=== PATIENT | male | born 1945 | race Caucasian/White ===

== ENCOUNTER 2016-11-03 18:52 | Inpatient (IN) ==
[2016-11-03] MEDS: Ipratropium 1 PUFF INHALER IH PRN (23:56)
[2016-11-04 08:15] LABS: Basophils % 0.1 %; Hematocrit 26.5 % (37.5-50.1); Hemoglobin 9.3 g/dL (12.9-16.9); Immature Granulocytes % 0.9 % (0-4); Lymphocytes # 0.1 K/mcL (0.6-4.6); Lymphocytes % 0.9 %; Mean Corpuscular HGB Conc 35.1 g/dL (31.6-35.5); Mean Corpuscular Hemoglobin 32.1 pg (28.0-33.3); Mean Corpuscular Volume 91.4 fL (83.0-100.0); Mean Platelet Volume 11.7 fL (9.4-12.4); Monocytes # 0.4 K/mcL (0.0-1.3); Monocytes % 2.7 %; Neutrophils # 12.9 K/mcL (1.6-8.9); Red Cell Distribution Width 16.4 % (11.5-14.5); Segmented Neutrophils % 95.4 %
[2016-11-04 08:25] LABS: Platelet Count 40 K/mcL (140-400)
[2016-11-04] MEDS: Bumetanide 1 MG TABLET PO SCH ×2 (08:28→23:04)
[2016-11-04] MEDS: Cyanocobalamin (B-12) 1,000 MCG TABLET PO SCH (08:28)
[2016-11-04] MEDS: PredniSONE 5 MG TABLET PO SCH (08:28)
[2016-11-04] MEDS ORDERED: XYZAL 5MG PO SCH (09:00)
[2016-11-04] MEDS ORDERED: Loratadine 10 MG TABLET PO SCH (09:00)
[2016-11-04] MEDS ORDERED: Aspirin 81 MG TAB.CHEW PO SCH (09:00)
[2016-11-04] MEDS ORDERED: FOSAMAX 35 MG PO SCH (09:00)
[2016-11-04] MEDS ORDERED: Diltiazem SR (12hr) 90 MG CAPSULE PO SCH (09:00)
[2016-11-04] MEDS ORDERED: CINNAMON BARK PO SCH (09:00)
[2016-11-04 09:07] LABS: BUN/Creatinine Ratio 65 (6-26); Blood Urea Nitrogen 83 mg/dL (8-26); Calcium 7.3 mg/dL (8.6-10.8); Carbon Dioxide 22 mEq/L (19-29); Chloride 108 mEq/L (98-109); Glucose 146 mg/dL (70-99); Osmolality,Calculated 318 (280-300); Sodium 140 mEq/L (136-145); eGFR For African Americans > 60 (> 60); eGFR For Non-African Americans 55 (> 60)
[2016-11-04] MEDS ORDERED: Albuterol 2.5 MG/3 ML NEBULIZER ONE (09:29)
[2016-11-04] MEDS: Ipratropium 1 PUFF INHALER IH PRN ×2 (09:36→21:16)
[2016-11-04] MEDS: Budesonide/Formoterol 160/4.5 MDI IH SCH ×2 (09:37→21:15)
[2016-11-04 09:57] LABS: Platelet Estimate Decreased (Normal)
--- NOTE | 2016-11-04 14:51 | Internal Med History&Physical ---
Date of Encounter: 11/04/16 Time of Encounter: 14:15 Assessment and Plan (1) CHF (congestive heart failure) Current visit: Yes Status: Acute Will increase Bumex. We will start isosorbide and Lanoxin. Continue Lopressor. Qualifiers: Congestive heart failure type: systolic Congestive heart failure chronicity : chronic Qualified Code(s): I50.22 - Chronic systolic (congestive) heart failure (2) Hyperuricemia Current visit: Yes Status: Acute We will start allopurinol. (3) COPD with acute exacerbation Current visit: No Status: Acute Continue Symbicort. We will start Spiriva and continue prn albuterol nebs. (4) CKD (chronic kidney disease), stage III Current visit: No Status: Chronic We will monitor renal indices. (5) Anemia Current visit: No Status: Acute We will order anemia testing in a.m. Qualifiers: Anemia type: unspecified type Qualified Code(s): D64.9 - Anemia, unspecified (6) Atrial fibrillation Current visit: Yes Status: Chronic He is now only on aspirin and Plavix for CVA prophylaxis. Eliquis was discontinued due to bleeding esophagitis Qualifiers: Atrial fibrillation type: chronic Qualified Code(s): I48.2 - Chronic atrial fibrillation Internal Medicine - H&P: HPI Chief complaint: Dyspnea Admitted From: Hospital to Hospital Transfer Plans for Post Hospital Care: Home History of present illness: Mr. Lucia is a 71 year old male who was hospitalized at [facility] October 14-November 03 after presenting with dyspnea. He had a bronchoscopy done in [facility] emergency room and was intubated and on the ventilator overnight. He was able to be weaned from the ventilator and was treated for multiple medical problems over the 3 week stay. He improved but it was felt would benefit from swing bed admission and ongoing therapy prior to returning to independent living. Past Med Surg Social Fam HX - Past Medical History Medical history: atrial fibrillation, CHF, COPD, coronary artery disease, GERD, GI bleed, hyperlipidemia, hypertension, myocardial infarction, osteoporosis, valvular heart disease Psychiatric history: anxiety - Past Surgical History Surgical History: angioplasty/stent, appendectomy, carotid endarterectomy, heart valve replacement - Social History Smoking Status: Former smoker Packs per day: 2 1/2 packs Smokeless Tobacco Status: No Alcohol use: heavy, recent Drug use: none - Family History Mother Adopted: [place]: Esthela Alba Age: 93 Family Member Ethnicity: Non- Living Status: Age at : 93 Cause of : CA Hx Family Cardiac Disorders: No Hx Family Respiratory Disorders: No Hx Family Cancer: Yes Hx Family GI Disorders: No Hx Family Genitourinary Disorders: No Hx Family Endocrine Disorder: No Hx Family Musculoskeletal Disorders: No Hx Family Neuromuscular Disorders: No Hx Family Neurologic Disorders: No Hx Family HEENT Disorders: No Hx Family Autoimmune Disorders: No Hx Family Reproductive Disorders: No Hx Family Psychosocial Disorders: No Hx Family Medical Disorders: No Internal Medicine - H&P: Meds Albuterol Sulfate [Proair Respiclick] 2 puff IH Q4H PRN 08/29/15 [History] Alendronate Sodium [Fosamax] 35 mg PO QWEEK 08/29/15 [History] Aspirin [Adult Low Dose Aspirin EC] 81 mg PO DAILY 08/29/15 [History] Atorvastatin [Lipitor] 40 mg PO HS 08/29/15 [History] Bumetanide [Bumex] 1 mg PO BID 08/29/15 [History] Cinnamon Bark [Cinnamon] 1,000 mg PO DAILY 08/29/15 [History] Clopidogrel [Plavix] 75 mg PO DAILY 08/29/15 [History] Fluticasone/Salmeterol [Advair 500-50 Diskus] 1 each IH BID 08/29/15 [History] Garlic 1,000 mg PO BID 08/29/15 [History] Ipratropium [ATROVENT Inhaler] 2 puff IH Q6HR PRN 08/29/15 [History] Loratadine [Claritin] 10 mg PO DAILY 08/29/15 [History] Metoprolol [Lopressor] 50 mg PO BID 08/29/15 [History] Omeprazole [PriLOSEC] 20 mg PO DAILY 08/29/15 [History] Roflumilast [Daliresp] 500 mcg PO DAILY 08/29/15 [History] [place] Oil/C[place]azon-3 Fatty Acids [Fish Oil 500 mg Softgel] 1 each PO BID 08/29/15 [History] Vitamin B Complex [B Complex] 1 each PO DAILY 08/29/15 [History] Vitamin E (Dl,Tocopheryl Acet) [Vitamin E] 400 unit PO DAILY 08/29/15 [History] Levocetirizine Dihydrochloride [Xyzal] 5 mg PO DAILY 10/14/16 [History] PredniSONE 5 mg PO DAILY 10/14/16 [History] Diazepam [Valium] 2 mg PO HS #7 tablet 11/03/16 [Rx] Diltiazem CD (24hr) [Cardizem CD] 180 mg PO BID #60 cap.er.24h 11/03/16 [Rx] Allergies diazoxide Adverse Reaction (Verified 03/10/15 11:39) Rash furosemide [From Lasix] Adverse Reaction (Verified 03/10/15 11:39) Rash montelukast Adverse Reaction (Verified 03/10/15 11:39) See Comments Pneumococcal Vaccine Adverse Reaction (Verified 03/10/15 11:39) Rash All Systems PM: A 10-system review of systems was performed and is negative for pertinent findings except as documented above in the HPI. Review of systems: Gen.: His weight has increased from 78.8 kg on 09/06/2015 to 82.355 kg on swing bed admission. Cardiovascular: He has a history of hypertension and claims he had CO in the past. He had bioprosthetic AVR 2009. He did not undergo CABG. He has had 2 coronary stents placed. He has been diagnosed with heart failure with echocardiogram done during his recent [facility] stay showing LVEF of 40-45% with suspected LV diastolic dysfunction. There was significant LAE at 4.7 cm. There was increased thickness of interventricular septum and posterior wall 1.5 cm each. There was moderate aortic insufficiency. He has atrial fibrillation and has undergone maze procedure in the past. He was seen by cardiology during his recent [facility] stay and it was recommended he take Eliquis and Plavix. Denies DVT or pulmonary embolus. He had left carotid endarterectomy 2012. He has known moderate right ICA stenosis. Respiratory: He smoked from age [age] up to 3 packs per day. He has very severe COPD states he does not use home oxygen. He states he had negative RUPINDER workup in the past GI: He had upper GI bleed during [facility] stay an EGD showed esophagitis. He denies disorders of his liver gallbladder or exocrine pancreas : He denies disorders of his kidneys bladder or prostate. He denies hematuria dysuria or kidney stones. Review of available records show likely chronic kidney disease stage 2-3 present. Neurologic: He denies large distribution strokes or seizures. Endocrine: He has hyperlipidemia but denies diabetes or thyroid disease Hematology/oncology: He has anemia but denies internal malignancies other blood disorders Psychiatric: He denies anxiety depression or other mental health issues Musk skeletal: He has DJD but no documented gout other bone joint or muscle disorders. He was unaware he had hyperuricemia during his recent [facility] stay. - Constitutional Vitals: Temp Pulse Resp BP Pulse Ox 97.7 F 52 17 152/96 98 11/04/16 07:51 11/04/16 07:51 11/04/16 09:38 11/04/16 07:51 11/04/16 09:38 Exam: General: He is a well-developed well-nourished male who appears mildly dyspneic at rest HEENT: Head is atraumatic and normocephalic. Eyes: EOMI. There is no scleral icterus. Mouth: Mucosa is moist. Neck: Supple and nontender. There is no thyromegaly or adenopathy noted. Heart: Irregularly irregular. No murmurs or gallops were heard Lungs: He has diminished breath sounds diffusely. No wheezes or crackles are heard. He is wearing oxygen by nasal cannula. Abdomen: Soft and nontender. He has a well-healed longitudinal midline scar and a left oblique abdominal scar. No masses or guarding are noted. He has significant ecchymosis of the lower abdominal wall. Extremities: He has significant edema of the dorsum of the hands and lower arms bilaterally. He has 2-3+ edema of the legs and dorsum of the feet. His feet are wrapped with gauze and I did not unwrap these. His minimal DJD changes of his hands. Neurologic: Mental status: He is talkative and a good historian. Cranial nerves : Smile is symmetric. Forehead wrinkles bilaterally. Tongue protrudes midline. EOMI. Motor: There is no pronator drift. Cerebellar: Finger to nose is intact bilaterally. Skin: Warm and dry. He has chronic ecchymotic changes in his skin which appears thin and fragile. Internal Med - H&P Results - Labs CBC & Chem 7: 11/04/16 07:50 11/04/16 07:50 Labs: Short CBC 11/04/16 Range/Units 07:50 WBC 13.5 H (4.3-11.1) K/mcL Hgb 9.3 L (12.9-16.9) g/dL Hct 26.5 L (37.5-50.1) % Plt Count 40 L (140-400) K/mcL Neutrophils # 12.9 H (1.6-8.9) K/mcL BMP 11/04/16 07:50 Sodium 140 Potassium 4.0 Chloride 108 Carbon Dioxide 22 BUN 83 H Creatinine 1.28 H Glucose 146 H Calcium 7.3 L - VTE Documentation of Mechanical Device: Intermittent pneumatic compression device
[2016-11-04] MEDS ORDERED: *HR* Digoxin 0.25 MG TABLET PO ONE (15:30)
[2016-11-04] MEDS: Albuterol 2.5 MG/3 ML NEBULIZER IH PRN ×2 (15:34→19:34)
[2016-11-04] MEDS: Isosorbide MONOnitrate (24 HR) 30 MG TAB.ER.24H PO SCH (15:56)
[2016-11-05] MEDS: Albuterol 2.5 MG/3 ML NEBULIZER IH PRN ×5 (01:22→21:45)
[2016-11-05] MEDS: Ipratropium 1 PUFF INHALER IH PRN (03:11)
[2016-11-05 05:47] LABS: Basophils % 0.1 %; Eosinophils % 0.1 %; Hematocrit 26.8 % (37.5-50.1); Hemoglobin 8.9 g/dL (12.9-16.9); Immature Granulocytes % 0.8 % (0-4); Lymphocytes # 0.2 K/mcL (0.6-4.6); Lymphocytes % 2.5 %; Mean Corpuscular HGB Conc 33.2 g/dL (31.6-35.5); Mean Corpuscular Hemoglobin 31.1 pg (28.0-33.3); Mean Corpuscular Volume 93.7 fL (83.0-100.0); Mean Platelet Volume 12.1 fL (9.4-12.4); Monocytes # 0.2 K/mcL (0.0-1.3); Monocytes % 2.4 %; Neutrophils # 8.2 K/mcL (1.6-8.9); Red Blood Count 2.86 M/mcL (4.19-5.50); Red Cell Distribution Width 16.7 % (11.5-14.5); Segmented Neutrophils % 94.1 %
[2016-11-05 05:54] LABS: Platelet Count 38 K/mcL (140-400)
[2016-11-05 06:04] LABS: Calcium 7.5 mg/dL (8.6-10.8); Potassium 3.6 mEq/L (3.5-4.5)
[2016-11-05] MEDS: *HR* Digoxin 0.125 MG TABLET PO SCH (10:23)
[2016-11-05] MEDS: Diltiazem CD (24hr) 180 MG CAPSULE PO SCH (10:23)
[2016-11-05] MEDS: Isosorbide MONOnitrate (24 HR) 30 MG TAB.ER.24H PO SCH (10:23)
[2016-11-05] MEDS: Bumetanide 1 MG TABLET PO SCH ×2 (10:23→18:39)
[2016-11-05] MEDS: PredniSONE 5 MG TABLET PO SCH (10:24)
[2016-11-05] MEDS: Cyanocobalamin (B-12) 1,000 MCG TABLET PO SCH (10:24)
[2016-11-05] MEDS: Budesonide/Formoterol 160/4.5 MDI IH SCH ×2 (10:41→21:44)
[2016-11-05 14:15] LABS: Folate 12.2 ng/mL (7.0-31.4)
--- NOTE | 2016-11-05 16:19 | Internal Med Progress Note ---
Date of Encounter: 11/05/16 Time of Encounter: 16:10 - Assessment and plan (1) CHF (congestive heart failure) Current Visit: Yes Status: Acute Assessment and plan: November 05. Continue Bumex, Lopressor, isosorbide, and Lanoxin. Will add Cozaar since blood pressure is elevated also. Qualifiers: Congestive heart failure type: systolic Congestive heart failure chronicity : chronic Qualified Code(s): I50.22 - Chronic systolic (congestive) heart failure (2) Hyperuricemia Current Visit: Yes Status: Acute Assessment and plan: November 05. Continue allopurinol (3) COPD with acute exacerbation Current Visit: No Status: Acute Assessment and plan: November 05. Continue Symbicort, Spiriva, and prn albuterol nebs (4) CKD (chronic kidney disease), stage III Current Visit: No Status: Chronic Assessment and plan: November 05. Continue to monitor renal indices. (5) Anemia Current Visit: No Status: Acute Assessment and plan: November 05. Anemia testing showed iron 38, transferrin saturation 20%, ferritin 655, B12 1963, and folate 12.2. We will discontinue supplemental B12. Qualifiers: Anemia type: unspecified type Qualified Code(s): D64.9 - Anemia, unspecified (6) Atrial fibrillation Current Visit: Yes Status: Chronic Assessment and plan: November 05. Aspirin was discontinued because of anemia and recent upper GI bleed at [facility]. We will continue Plavix for now with Lopressor for rate control Qualifiers: Atrial fibrillation type: chronic Qualified Code(s): I48.2 - Chronic atrial fibrillation - Subjective Interval history: November 05. He has no new complaints and states he feels better overall. - Constitutional Vitals: Temp Pulse Resp BP Pulse Ox 98.3 F 111 22 161/68 94 11/05/16 10:17 11/05/16 10:11/05/16 13:54 11/05/16 10:11/05/16 13:54 Exam: He has resting comfortably in bed. He is less dyspneic with talking. His edema does not appear significantly changed. I reviewed his medications and lab results. Internal Medicine: Result - Labs CBC & Chem 7: 11/05/16 04:49 11/05/16 04:49 Labs: Short CBC 11/05/16 Range/Units 04:49 WBC 8.7 (4.3-11.1) K/mcL Hgb 8.9 L (12.9-16.9) g/dL Hct 26.8 L (37.5-50.1) % Plt Count 38 L (140-400) K/mcL Neutrophils # 8.2 (1.6-8.9) K/mcL BMP 11/05/16 04:49 Sodium 142 Potassium 3.6 Chloride 107 Carbon Dioxide 24 BUN 88 H Creatinine 1.42 H Glucose 108 H Calcium 7.5 L - VTE Documentation of Mechanical Device: Intermittent pneumatic compression device Consult Discharge Plan - Plan Referrals: Karri Mroales MD [Primary Care Provider] - 1 week
[2016-11-05] MEDS ORDERED: Isosorbide MONOnitrate (24 HR) 30 MG TAB.ER.24H PO ONE (16:45)
[2016-11-05] MEDS ORDERED: Silver Sulfadiazine 50 GM TUBE TP ONE (23:25)
[2016-11-06] MEDS: Albuterol 2.5 MG/3 ML NEBULIZER IH PRN ×3 (03:49→21:42)
[2016-11-06] MEDS: Bumetanide 1 MG TABLET PO SCH ×2 (07:58→17:37)
[2016-11-06] MEDS ORDERED: Silvasorb 44.4 ML TUBE TP SCH (09:00)
--- NOTE | 2016-11-06 09:08 | Internal Med Progress Note ---
Date of Encounter: 11/06/16 Time of Encounter: 08:55 - Assessment and plan (1) CHF (congestive heart failure) Current Visit: Yes Status: Acute Assessment and plan: November 05. Continue Bumex, Lopressor, isosorbide, and Lanoxin. Will add Cozaar since blood pressure is elevated also. November 06. We will hold Cozaar today since blood pressure has decreased and is now borderline low. Continue Bumex, Lopressor, isosorbide, and Lanoxin. Check labs in a.m. Qualifiers: Congestive heart failure type: systolic Congestive heart failure chronicity : chronic Qualified Code(s): I50.22 - Chronic systolic (congestive) heart failure (2) Hyperuricemia Current Visit: Yes Status: Acute Assessment and plan: November 05. Continue allopurinol (3) COPD with acute exacerbation Current Visit: No Status: Acute Assessment and plan: November 05. Continue Symbicort, Spiriva, and prn albuterol nebs (4) CKD (chronic kidney disease), stage III Current Visit: No Status: Chronic Assessment and plan: November 05. Continue to monitor renal indices. (5) Anemia Current Visit: No Status: Acute Assessment and plan: November 05. Anemia testing showed iron 38, transferrin saturation 20%, ferritin 655, B12 1963, and folate 12.2. We will discontinue supplemental B12. Qualifiers: Anemia type: unspecified type Qualified Code(s): D64.9 - Anemia, unspecified (6) Atrial fibrillation Current Visit: Yes Status: Chronic Assessment and plan: November 05. Aspirin was discontinued because of anemia and recent upper GI bleed at [facility]. We will continue Plavix for now with Lopressor for rate control November 06. Continue Lopressor for rate control. Recheck labs in a.m. Qualifiers: Atrial fibrillation type: chronic Qualified Code(s): I48.2 - Chronic atrial fibrillation - Subjective Interval history: November 05. He has no new complaints and states he feels better overall. November 06. He states his dyspnea has improved. He had a brief episode of chest pain earlier today. - Constitutional Vitals: Temp Pulse Resp BP Pulse Ox 97.5 F L 100 16 108/70 95 11/06/16 07:55 11/06/16 07:55 11/06/16 07:55 11/06/16 07:55 11/06/16 07:55 Exam: He is sitting in bed and appears less dyspneic than yesterday. His left hand and arm edema have lessened. The right arm still shows erythematous induration in the distal upper arm posteriorly. There is still edema of the right forearm and hand as yesterday. His leg edema has slightly improved. Lungs show scattered rhonchi. Reviewed his medications and lab results Internal Medicine: Result - Labs CBC & Chem 7: 11/05/16 04:49 11/05/16 04:49 - VTE Documentation of Mechanical Device: Intermittent pneumatic compression device Consult Discharge Plan - Plan Referrals: Karri Morales MD [Primary Care Provider] - 1 week
[2016-11-06] MEDS: Diltiazem CD (24hr) 180 MG CAPSULE PO SCH (10:55)
[2016-11-06] MEDS: PredniSONE 5 MG TABLET PO SCH (10:56)
[2016-11-06] MEDS: Isosorbide MONOnitrate (24 HR) 60 MG TAB.ER.24H PO SCH (10:56)
[2016-11-06] MEDS: *HR* Digoxin 0.125 MG TABLET PO SCH (11:00)
[2016-11-06] MEDS: Budesonide/Formoterol 160/4.5 MDI IH SCH ×2 (11:33→21:42)
[2016-11-06] MEDS: Tiotropium 18 MCG inhalation IH SCH (11:43)
[2016-11-06] MEDS: Nystatin SUSP 5 ML UD.LIQ PO SCH ×2 (17:37→22:08)
[2016-11-06] MEDS: Silvasorb 44.4 ML TUBE TP SCH (22:41)
[2016-11-07 06:20] LABS: Eosinophils # 0.1 K/mcL (0.0-0.6); Eosinophils % 2.1 %; Immature Granulocytes % 1.2 % (0-4); Lymphocytes # 0.2 K/mcL (0.6-4.6); Lymphocytes % 5.6 %; Mean Corpuscular HGB Conc 33.3 g/dL (31.6-35.5); Mean Corpuscular Hemoglobin 31.7 pg (28.0-33.3); Mean Corpuscular Volume 95.2 fL (83.0-100.0); Mean Platelet Volume 12.5 fL (9.4-12.4); Monocytes # 0.2 K/mcL (0.0-1.3); Monocytes % 4.7 %; Neutrophils # 3.7 K/mcL (1.6-8.9); Red Blood Count 2.52 M/mcL (4.19-5.50); Red Cell Distribution Width 16.9 % (11.5-14.5); Segmented Neutrophils % 86.4 %
[2016-11-07 06:34] LABS: Alanine Aminotransferase 47 Units/L (0-55); Albumin/Globulin Ratio 0.8 (1.1-2.2); Alkaline Phosphatase 58 Units/L (38-126); Aspartate Amino Transferase 58 Units/L (5-34); BUN/Creatinine Ratio 70 (6-26); Bilirubin,Total 0.6 mg/dL (0.2-1.2); Blood Urea Nitrogen 79 mg/dL (8-26); Calcium 7.5 mg/dL (8.6-10.8); Carbon Dioxide 22 mEq/L (19-29); Chloride 107 mEq/L (98-109); Globulin 2.3 g/dL (2.4-3.5); Glucose 88 mg/dL (70-99); Magnesium 1.4 mg/dL (1.6-2.6); Osmolality,Calculated 317 (280-300); Potassium 3.7 mEq/L (3.5-4.5); Sodium 142 mEq/L (136-145); Total Protein 4.2 g/dL (6.0-8.3); eGFR For African Americans > 60 (> 60); eGFR For Non-African Americans > 60 (> 60)
[2016-11-07 06:35] LABS: Albumin 1.9 g/dL (3.5-5.0)
[2016-11-07 06:39] LABS: Platelet Count 32 K/mcL (140-400)
[2016-11-07 06:44] LABS: Digoxin < 0.3 ng/mL (0.8-2.0)
[2016-11-07 08:38] LABS: Platelet Estimate Decreased (Normal)
[2016-11-07] MEDS: Diltiazem CD (24hr) 180 MG CAPSULE PO SCH (09:03)
[2016-11-07] MEDS: Bumetanide 1 MG TABLET PO SCH ×2 (09:06→16:03)
[2016-11-07] MEDS: PredniSONE 5 MG TABLET PO SCH (09:07)
[2016-11-07] MEDS: *HR* Digoxin 0.125 MG TABLET PO SCH (09:07)
[2016-11-07] MEDS: Isosorbide MONOnitrate (24 HR) 60 MG TAB.ER.24H PO SCH (09:08)
[2016-11-07] MEDS: Nystatin SUSP 5 ML UD.LIQ PO SCH ×4 (09:09→21:44)
[2016-11-07] MEDS: Tiotropium 18 MCG inhalation IH SCH (11:50)
[2016-11-07] MEDS: Budesonide/Formoterol 160/4.5 MDI IH SCH ×2 (11:50→22:15)
--- NOTE | 2016-11-07 14:51 | Internal Med Progress Note ---
Date of Encounter: 11/07/16 Time of Encounter: 14:40 - Assessment and plan (1) CHF (congestive heart failure) Current Visit: Yes Status: Acute Assessment and plan: November 05. Continue Bumex, Lopressor, isosorbide, and Lanoxin. Will add Cozaar since blood pressure is elevated also. November 06. We will hold Cozaar today since blood pressure has decreased and is now borderline low. Continue Bumex, Lopressor, isosorbide, and Lanoxin. Check labs in a.m. November 07. Will increase Lanoxin and isosorbide. Continue Lopressor and Bumex at present doses. Qualifiers: Congestive heart failure type: systolic Congestive heart failure chronicity : chronic Qualified Code(s): I50.22 - Chronic systolic (congestive) heart failure (2) Hyperuricemia Current Visit: Yes Status: Acute Assessment and plan: November 05. Continue allopurinol (3) COPD with acute exacerbation Current Visit: No Status: Acute Assessment and plan: November 05. Continue Symbicort, Spiriva, and prn albuterol nebs (4) CKD (chronic kidney disease), stage III Current Visit: No Status: Chronic Assessment and plan: November 05. Continue to monitor renal indices. November 07. Creatinine has decreased to 1.13 with estimated GFR greater than 60. Continue present regimen. (5) Anemia Current Visit: No Status: Acute Assessment and plan: November 05. Anemia testing showed iron 38, transferrin saturation 20%, ferritin 655, B12 1963, and folate 12.2. We will discontinue supplemental B12. November 07. Hemoglobin continues to decrease. We will discontinue Plavix. Qualifiers: Anemia type: unspecified type Qualified Code(s): D64.9 - Anemia, unspecified (6) Atrial fibrillation Current Visit: Yes Status: Chronic Assessment and plan: November 05. Aspirin was discontinued because of anemia and recent upper GI bleed at [facility]. We will continue Plavix for now with Lopressor for rate control November 06. Continue Lopressor for rate control. Recheck labs in a.m. Qualifiers: Atrial fibrillation type: chronic Qualified Code(s): I48.2 - Chronic atrial fibrillation (7) Hypomagnesemia Current Visit: Yes Status: Acute Assessment and plan: November 07. Magnesium level low at 1.4. Will start magnesium oxide - Subjective Interval history: November 05. He has no new complaints and states he feels better overall. November 06. He states his dyspnea has improved. He had a brief episode of chest pain earlier today. November 07. He has no new complaints and feels better. - Constitutional Vitals: Temp Pulse Resp BP Pulse Ox 98.5 F 101 16 126/57 92 11/07/16 07:32 11/07/16 09:00 11/07/16 07:32 11/07/16 09:00 11/07/16 07:32 Exam: He is resting comfortably in bed. He does not get dyspnea on talking. The edema in his left arm has essentially resolved. His leg edema has lessened. The right arm edema is minimally changed. I reviewed his medications and lab results. Internal Medicine: Result - Labs CBC & Chem 7: 11/07/16 04:53 11/07/16 04:53 Labs: Short CBC 11/07/16 Range/Units 04:53 WBC 4.3 D (4.3-11.1) K/mcL Hgb 8.0 L (12.9-16.9) g/dL Hct 24.0 L (37.5-50.1) % Plt Count 32 L (140-400) K/mcL Neutrophils # 3.7 (1.6-8.9) K/mcL BMP 11/07/16 04:53 Sodium 142 Potassium 3.7 Chloride 107 Carbon Dioxide 22 BUN 79 H Creatinine 1.13 Glucose 88 Calcium 7.5 L Liver Function 11/07/16 Range/Units 04:53 Total Bilirubin 0.6 (0.2-1.2) mg/dL AST 58 H (5-34) Units/L ALT 47 (0-55) Units/L Alkaline Phosphatase 58 (38-126) Units/L Albumin 1.9 L (3.5-5.0) g/dL - VTE Documentation of Mechanical Device: Intermittent pneumatic compression device Consult Discharge Plan - Plan Referrals: Karri Morales MD [Primary Care Provider] - 1 week
[2016-11-07] MEDS ORDERED: *HR* Digoxin 0.125 MG TABLET PO SCH (14:56)
[2016-11-07] MEDS: Silvasorb 44.4 ML TUBE TP SCH (16:04)
[2016-11-07] MEDS: Magnesium Oxide 400 MG TABLET PO SCH (21:43)
[2016-11-07] MEDS: Albuterol 2.5 MG/3 ML NEBULIZER IH PRN (22:15)
[2016-11-08] MEDS: Albuterol 2.5 MG/3 ML NEBULIZER IH PRN ×5 (02:19→21:39)
[2016-11-08] MEDS: Budesonide/Formoterol 160/4.5 MDI IH SCH ×2 (08:59→21:39)
[2016-11-08] MEDS: Tiotropium 18 MCG inhalation IH SCH (08:59)
[2016-11-08] MEDS: PredniSONE 5 MG TABLET PO SCH (10:05)
[2016-11-08] MEDS: Bumetanide 1 MG TABLET PO SCH ×2 (10:05→17:06)
[2016-11-08] MEDS: Magnesium Oxide 400 MG TABLET PO SCH ×2 (10:05→20:37)
[2016-11-08] MEDS: Isosorbide MONOnitrate (24 HR) 60 MG TAB.ER.24H PO SCH (10:06)
[2016-11-08] MEDS: Diltiazem CD (24hr) 180 MG CAPSULE PO SCH (10:06)
[2016-11-08] MEDS: Nystatin SUSP 5 ML UD.LIQ PO SCH ×4 (10:07→20:38)
[2016-11-08] MEDS: Silvasorb 44.4 ML TUBE TP SCH (10:15)
[2016-11-09] MEDS: Albuterol 2.5 MG/3 ML NEBULIZER IH PRN ×4 (03:46→21:58)
[2016-11-09 05:44] LABS: Eosinophils # 0.1 K/mcL (0.0-0.6); Hematocrit 20.5 % (37.5-50.1); Hemoglobin 6.7 g/dL (12.9-16.9); Lymphocytes # 0.3 K/mcL (0.6-4.6); Mean Corpuscular HGB Conc 32.7 g/dL (31.6-35.5); Mean Corpuscular Hemoglobin 31.5 pg (28.0-33.3); Mean Corpuscular Volume 96.2 fL (83.0-100.0); Monocytes # 0.2 K/mcL (0.0-1.3); Red Blood Count 2.13 M/mcL (4.19-5.50); Red Cell Distribution Width 17.2 % (11.5-14.5)
[2016-11-09 06:00] LABS: BUN/Creatinine Ratio 67 (6-26); Blood Urea Nitrogen 73 mg/dL (8-26); Calcium 7.6 mg/dL (8.6-10.8); Carbon Dioxide 25 mEq/L (19-29); Chloride 106 mEq/L (98-109); Glucose 88 mg/dL (70-99); Magnesium 1.2 mg/dL (1.6-2.6); Osmolality,Calculated 313 (280-300); Potassium 3.5 mEq/L (3.5-4.5); Sodium 141 mEq/L (136-145); eGFR For African Americans > 60 (> 60); eGFR For Non-African Americans > 60 (> 60)
[2016-11-09 08:32] LABS: Neutrophils # 2.2 K/mcL (1.6-8.9); Platelet Estimate Decreased (Normal)
[2016-11-09 08:33] LABS: Anisocytosis 1+ (Not Present); Ovalocytes 1+ (Not Present)
[2016-11-09] MEDS: PredniSONE 5 MG TABLET PO SCH (09:04)
[2016-11-09] MEDS: *HR* Digoxin 0.25 MG TABLET PO SCH (09:05)
[2016-11-09] MEDS: Bumetanide 1 MG TABLET PO SCH ×2 (09:06→17:04)
[2016-11-09] MEDS: Magnesium Oxide 400 MG TABLET PO SCH ×2 (09:06→19:44)
[2016-11-09] MEDS: Isosorbide MONOnitrate (24 HR) 60 MG TAB.ER.24H PO SCH (09:07)
[2016-11-09] MEDS: Diltiazem CD (24hr) 180 MG CAPSULE PO SCH (09:07)
[2016-11-09] MEDS: Nystatin SUSP 5 ML UD.LIQ PO SCH ×4 (09:09→19:44)
[2016-11-09] MEDS: Silver Sulfadiazine 50 GM TUBE TP SCH (09:16)
[2016-11-09] MEDS: Budesonide/Formoterol 160/4.5 MDI IH SCH ×2 (10:27→21:58)
[2016-11-09] MEDS: Tiotropium 18 MCG inhalation IH SCH (10:30)
[2016-11-09 15:57] LABS: Bilirubin,Urine Negative (Negative); Blood,Urine Small (Negative); Clarity,Urine Slightly Cloudy (Clear); Color,Urine Yellow (Yellow); Glucose,Urine (UA) Normal (Normal); Ketones,Urine Negative (Negative); Leukocyte Esterase,Urine Small (Negative); Nitrite,Urine Negative (Negative); Protein,Urine Negative (Neg-Trace); Urobilinogen,Urine Normal (Normal)
[2016-11-09 16:13] LABS: Granular Casts,Urine Moderate per lpf (None Seen); Renal Epithelial Cells,Urine Many per hpf (None-Few); Squamous Epithelial Cell,Urine Few per lpf (None-Few); Yeast,Urine Many per hpf (None Seen)
--- NOTE | 2016-11-09 16:21 | Internal Med Progress Note ---
Date of Encounter: 11/09/16 Time of Encounter: 14:00 - Assessment and plan (1) CHF (congestive heart failure) Current Visit: Yes Status: Acute Assessment and plan: November 05. Continue Bumex, Lopressor, isosorbide, and Lanoxin. Will add Cozaar since blood pressure is elevated also. November 06. We will hold Cozaar today since blood pressure has decreased and is now borderline low. Continue Bumex, Lopressor, isosorbide, and Lanoxin. Check labs in a.m. November 07. Will increase Lanoxin and isosorbide. Continue Lopressor and Bumex at present doses. November 09. Continue present dose Lanoxin, Imdur, Bumex, Cozaar and Lopressor. Bn peptide is not significantly changed. Qualifiers: Congestive heart failure type: systolic Congestive heart failure chronicity : chronic Qualified Code(s): I50.22 - Chronic systolic (congestive) heart failure (2) Hyperuricemia Current Visit: Yes Status: Acute Assessment and plan: November 05. Continue allopurinol November 09. We will recheck uric acid level in a.m. (3) COPD with acute exacerbation Current Visit: No Status: Acute Assessment and plan: November 05. Continue Symbicort, Spiriva, and prn albuterol nebs (4) CKD (chronic kidney disease), stage III Current Visit: No Status: Chronic Assessment and plan: November 05. Continue to monitor renal indices. November 07. Creatinine has decreased to 1.13 with estimated GFR greater than 60. Continue present regimen. November 09. Creatinine has decreased to 1.09. Continue present management (5) Anemia Current Visit: No Status: Acute Assessment and plan: November 05. Anemia testing showed iron 38, transferrin saturation 20%, ferritin 655, B12 1963, and folate 12.2. We will discontinue supplemental B12. November 07. Hemoglobin continues to decrease. We will discontinue Plavix. November 09. He has pancytopenia with significant bandemia. He had upper GI bleed with esophagitis on EGD 11/01/2016 during his recent [facility] stay. Will guaiac stool. Qualifiers: Anemia type: unspecified type Qualified Code(s): D64.9 - Anemia, unspecified (6) Atrial fibrillation Current Visit: Yes Status: Chronic Assessment and plan: November 05. Aspirin was discontinued because of anemia and recent upper GI bleed at [facility]. We will continue Plavix for now with Lopressor for rate control November 06. Continue Lopressor for rate control. Recheck labs in a.m. November 09. Continue Lopressor. Remain off OAC and antiplatelet agents because of worsening anemia. Qualifiers: Atrial fibrillation type: chronic Qualified Code(s): I48.2 - Chronic atrial fibrillation (7) Hypomagnesemia Current Visit: Yes Status: Acute Assessment and plan: November 07. Magnesium level low at 1.4. Will start magnesium oxide November 09. Magnesium level still low at 1.2. We will give dose of IV magnesium sulfate and continue oral magnesium oxide.. - Subjective Interval history: November 05. He has no new complaints and states he feels better overall. November 06. He states his dyspnea has improved. He had a brief episode of chest pain earlier today. November 07. He has no new complaints and feels better. November 09. He has no new complaints. - Constitutional Vitals: Temp Pulse Resp BP Pulse Ox 97.8 F 89 16 98/49 98 11/09/16 14:27 11/09/16 16:09 11/09/16 16:09 11/09/16 16:09 11/09/16 16:09 Exam: He is sitting in a chair at bedside. His legs show decreased edema. The left arm edema has essentially resolved. The right arm erythema and edema is not significantly changed. His lungs show a few scattered rhonchi. He is appropriate in conversation. I reviewed his medications and lab results. Internal Medicine: Result - Labs CBC & Chem 7: 11/09/16 05:15 11/09/16 05:15 Labs: Short CBC 11/09/16 Range/Units 05:15 WBC 2.7 L (4.3-11.1) K/mcL Hgb 6.7 L (12.9-16.9) g/dL Hct 20.5 L (37.5-50.1) % Plt Count 28 L* (140-400) K/mcL Neutrophils # 2.2 (1.6-8.9) K/mcL BMP 11/09/16 05:15 Sodium 141 Potassium 3.5 Chloride 106 Carbon Dioxide 25 BUN 73 H Creatinine 1.09 Glucose 88 Calcium 7.6 L Urine 11/09/16 Range/Units 15:40 Urine Color Yellow (Yellow) Urine Clarity Slightly Cloudy A (Clear) Urine pH 5.0 (5.0-8.0) pH Units Ur Specific [place] 1.010 (1.010-1.025) Urine Protein Negative (Neg-Trace) mg/dL Urine Glucose (UA) Normal (Normal) mg/dL - Impressions Impressions Chest CT 11/09/16 12:44 IMPRESSION: Diffuse soft tissue edema of the right upper extremity from the level of the mid upper arm to the hand suggesting cellulitis. No evidence of deep soft tissue infection. No discrete drainable fluid collection to suggest an abscess within the limits of this exam. No evidence of joint effusions. Incidentally noted medial subluxation of the long head biceps tendon from which can be seen with subscapularis tear. Exam is not tailored for the evaluation of the shoulder. Subtle sclerotic areas in the right anterolateral 4th, 5th and 6th ribs. Cortical irregularity and sclerosis of the right lateral 7th rib. Given the contiguous nature of these findings in adjacent ribs findings suggest healing subacute fractures. Differential would include metastatic osseous lesions given the appearance of the 7th rib. Bone scan may be helpful for further evaluation. Cardiomegaly with interstitial pulmonary edema and small bilateral pleural effusions suggesting CHF. D/ / 11/09/2016 15:20:07 Micah Fam MD / jared Interpreting Provider: Micah Fam MD Upper Extremity CT 11/09/16 12:44 IMPRESSION: Diffuse soft tissue edema of the right upper extremity from the level of the mid upper arm to the hand suggesting cellulitis. No evidence of deep soft tissue infection. No discrete drainable fluid collection to suggest an abscess within the limits of this exam. No evidence of joint effusions. Incidentally noted medial subluxation of the long head biceps tendon from which can be seen with subscapularis tear. Exam is not tailored for the evaluation of the shoulder. Subtle sclerotic areas in the right anterolateral 4th, 5th and 6th ribs. Cortical irregularity and sclerosis of the right lateral 7th rib. Given the contiguous nature of these findings in adjacent ribs findings suggest healing subacute fractures. Differential would include metastatic osseous lesions given the appearance of the 7th rib. Bone scan may be helpful for further evaluation. Cardiomegaly with interstitial pulmonary edema and small bilateral pleural effusions suggesting CHF. D/ / 11/09/2016 15:20:07 Micah Fam MD / [email or web address] Interpreting Provider: Micah Fam MD - VTE Documentation of Mechanical Device: Intermittent pneumatic compression device Consult Discharge Plan - Plan Referrals: Karri Morales MD [Primary Care Provider] - 1 week
[2016-11-09] MEDS ORDERED: Magnesium Sulfate 1 GM in D5% in Water 100 ML IVPB ONE (16:27)
[2016-11-09] MEDS: Vancomycin 1,250 MG in D5% in Water 250 ML IVPB SCH (18:00)
[2016-11-10 06:08] LABS: Eosinophils % 0.9 %; Hematocrit 18.2 % (37.5-50.1); Immature Granulocytes % 0.9 % (0-4); Lymphocytes # 0.3 K/mcL (0.6-4.6); Lymphocytes % 11.7 %; Mean Corpuscular Hemoglobin 31.3 pg (28.0-33.3); Mean Corpuscular Volume 94.8 fL (83.0-100.0); Mean Platelet Volume 11.4 fL (9.4-12.4); Monocytes # 0.1 K/mcL (0.0-1.3); Monocytes % 6.1 %; Neutrophils # 1.9 K/mcL (1.6-8.9); Red Blood Count 1.92 M/mcL (4.19-5.50); Red Cell Distribution Width 17.4 % (11.5-14.5); Segmented Neutrophils % 80.4 %
[2016-11-10 06:27] LABS: Alanine Aminotransferase 57 Units/L (0-55); Albumin/Globulin Ratio 0.5 (1.1-2.2); Alkaline Phosphatase 60 Units/L (38-126); Aspartate Amino Transferase 59 Units/L (5-34); BUN/Creatinine Ratio 66 (6-26); Bilirubin,Total 0.4 mg/dL (0.2-1.2); Blood Urea Nitrogen 77 mg/dL (8-26); Calcium 7.5 mg/dL (8.6-10.8); Carbon Dioxide 25 mEq/L (19-29); Chloride 105 mEq/L (98-109); Globulin 2.7 g/dL (2.4-3.5); Glucose 118 mg/dL (70-99); Magnesium 1.3 mg/dL (1.6-2.6); Osmolality,Calculated 312 (280-300); Potassium 3.5 mEq/L (3.5-4.5); Sodium 139 mEq/L (136-145); Total Protein 4.1 g/dL (6.0-8.3); Uric Acid 8.6 mg/dL (3.5-7.2); eGFR For African Americans > 60 (> 60); eGFR For Non-African Americans > 60 (> 60)
[2016-11-10 06:28] LABS: Albumin 1.4 g/dL (3.5-5.0); Platelet Count 27 K/mcL (140-400)
[2016-11-10 06:39] LABS: Platelet Estimate Decreased (Normal)
[2016-11-10] MEDS: *HR* Digoxin 0.25 MG TABLET PO SCH (08:06)
[2016-11-10] MEDS: Magnesium Oxide 400 MG TABLET PO SCH ×2 (08:06→20:15)
[2016-11-10] MEDS: Nystatin SUSP 5 ML UD.LIQ PO SCH ×4 (08:06→20:16)
[2016-11-10] MEDS: Bumetanide 1 MG TABLET PO SCH (08:06)
[2016-11-10] MEDS: Isosorbide MONOnitrate (24 HR) 60 MG TAB.ER.24H PO SCH ×2 (08:07→09:46)
[2016-11-10] MEDS: Diltiazem CD (24hr) 180 MG CAPSULE PO SCH (08:08)
[2016-11-10] MEDS ORDERED: Magnesium Sulfate 1 GM in D5% in Water 100 ML IVPB ONE (08:45)
--- NOTE | 2016-11-10 08:50 | Internal Med Progress Note ---
Date of Encounter: 11/10/16 Time of Encounter: 08:40 - Assessment and plan (1) CHF (congestive heart failure) Current Visit: Yes Status: Acute Assessment and plan: November 05. Continue Bumex, Lopressor, isosorbide, and Lanoxin. Will add Cozaar since blood pressure is elevated also. November 06. We will hold Cozaar today since blood pressure has decreased and is now borderline low. Continue Bumex, Lopressor, isosorbide, and Lanoxin. Check labs in a.m. November 07. Will increase Lanoxin and isosorbide. Continue Lopressor and Bumex at present doses. November 09. Continue present dose Lanoxin, Imdur, Bumex, Cozaar and Lopressor. Bn peptide is not significantly changed. November 10. We will give Bumex IV instead of by mouth. Continue other medications as at present. Qualifiers: Congestive heart failure type: systolic Congestive heart failure chronicity : chronic Qualified Code(s): I50.22 - Chronic systolic (congestive) heart failure (2) Hyperuricemia Current Visit: Yes Status: Acute Assessment and plan: November 05. Continue allopurinol November 09. We will recheck uric acid level in a.m. November 10. Uric acid level has improved to 8.6. We will increase allopurinol to 400 mg daily. (3) COPD with acute exacerbation Current Visit: No Status: Acute Assessment and plan: November 05. Continue Symbicort, Spiriva, and prn albuterol nebs (4) CKD (chronic kidney disease), stage III Current Visit: No Status: Chronic Assessment and plan: November 05. Continue to monitor renal indices. November 07. Creatinine has decreased to 1.13 with estimated GFR greater than 60. Continue present regimen. November 09. Creatinine has decreased to 1.09. Continue present management (5) Anemia Current Visit: No Status: Acute Assessment and plan: November 05. Anemia testing showed iron 38, transferrin saturation 20%, ferritin 655, B12 1963, and folate 12.2. We will discontinue supplemental B12. November 07. Hemoglobin continues to decrease. We will discontinue Plavix. November 09. He has pancytopenia with significant bandemia. He had upper GI bleed with esophagitis on EGD 11/01/2016 during his recent [facility] stay. Will guaiac stool. November 10. Pancytopenia persists. Bandemia has resolved with segs 80.4%. We will give 2 units packed red blood cells today and recheck labs in a.m. Stool was Hemoccult positive. Qualifiers: Anemia type: unspecified type Qualified Code(s): D64.9 - Anemia, unspecified (6) Atrial fibrillation Current Visit: Yes Status: Chronic Assessment and plan: November 05. Aspirin was discontinued because of anemia and recent upper GI bleed at [facility]. We will continue Plavix for now with Lopressor for rate control November 06. Continue Lopressor for rate control. Recheck labs in a.m. November 09. Continue Lopressor. Remain off OAC and antiplatelet agents because of worsening anemia. Qualifiers: Atrial fibrillation type: chronic Qualified Code(s): I48.2 - Chronic atrial fibrillation (7) Hypomagnesemia Current Visit: Yes Status: Acute Assessment and plan: November 07. Magnesium level low at 1.4. Will start magnesium oxide November 09. Magnesium level still low at 1.2. We will give dose of IV magnesium sulfate and continue oral magnesium oxide.. November 10. Magnesium level minimally changed to 1.3. We will give 1 g magnesium sulfate IV and recheck labs in a.m. Continue oral magnesium oxide. - Subjective Interval history: November 05. He has no new complaints and states he feels better overall. November 06. He states his dyspnea has improved. He had a brief episode of chest pain earlier today. November 07. He has no new complaints and feels better. November 09. He has no new complaints. November 10. He has no new complaints. He denies pain but states he has slight dyspnea. - Constitutional Vitals: Temp Pulse Resp BP Pulse Ox 98.2 F 81 20 116/60 93 11/10/16 07:01 11/10/16 07:01 11/10/16 07:01 11/10/16 08:11 11/10/16 07:01 Exam: He is resting in bed. He has occasional cough with secretions heard. His extremity edema is slightly less in his legs. He has slight left arm edema. The right arm edema shows minimal change. Reviewed his medications and lab results. Internal Medicine: Result - Labs CBC & Chem 7: 11/10/16 05:10 11/10/16 05:10 Labs: Short CBC 11/09/16 11/10/16 Range/Units 05:15 05:10 WBC 2.7 L 2.3 L (4.3-11.1) K/mcL Hgb 6.7 L 6.0 L* (12.9-16.9) g/dL Hct 20.5 L 18.2 L (37.5-50.1) % Plt Count 28 L* 27 L* (140-400) K/mcL Neutrophils # 1.9 (1.6-8.9) K/mcL BMP 11/10/16 05:10 Sodium 139 Potassium 3.5 Chloride 105 Carbon Dioxide 25 BUN 77 H Creatinine 1.17 Glucose 118 H Calcium 7.5 L Liver Function 11/10/16 Range/Units 05:10 Total Bilirubin 0.4 (0.2-1.2) mg/dL AST 59 H (5-34) Units/L ALT 57 H (0-55) Units/L Alkaline Phosphatase 60 (38-126) Units/L Albumin 1.4 L (3.5-5.0) g/dL Urine 11/09/16 Range/Units 15:40 Urine Color Yellow (Yellow) Urine Clarity Slightly Cloudy A (Clear) Urine pH 5.0 (5.0-8.0) pH Units Ur Specific [place] 1.010 (1.010-1.025) Urine Protein Negative (Neg-Trace) mg/dL Urine Glucose (UA) Normal (Normal) mg/dL - Impressions Impressions Chest CT 11/09/16 12:44 IMPRESSION: Diffuse soft tissue edema of the right upper extremity from the level of the mid upper arm to the hand suggesting cellulitis. No evidence of deep soft tissue infection. No discrete drainable fluid collection to suggest an abscess within the limits of this exam. No evidence of joint effusions. Incidentally noted medial subluxation of the long head biceps tendon from which can be seen with subscapularis tear. Exam is not tailored for the evaluation of the shoulder. Subtle sclerotic areas in the right anterolateral 4th, 5th and 6th ribs. Cortical irregularity and sclerosis of the right lateral 7th rib. Given the contiguous nature of these findings in adjacent ribs findings suggest healing subacute fractures. Differential would include metastatic osseous lesions given the appearance of the 7th rib. Bone scan may be helpful for further evaluation. Cardiomegaly with interstitial pulmonary edema and small bilateral pleural effusions suggesting CHF. D/ / 11/09/2016 15:20:07 Micah Fam MD / jared Interpreting Provider: Micah Fam MD Upper Extremity CT 11/09/16 12:44 IMPRESSION: Diffuse soft tissue edema of the right upper extremity from the level of the mid upper arm to the hand suggesting cellulitis. No evidence of deep soft tissue infection. No discrete drainable fluid collection to suggest an abscess within the limits of this exam. No evidence of joint effusions. Incidentally noted medial subluxation of the long head biceps tendon from which can be seen with subscapularis tear. Exam is not tailored for the evaluation of the shoulder. Subtle sclerotic areas in the right anterolateral 4th, 5th and 6th ribs. Cortical irregularity and sclerosis of the right lateral 7th rib. Given the contiguous nature of these findings in adjacent ribs findings suggest healing subacute fractures. Differential would include metastatic osseous lesions given the appearance of the 7th rib. Bone scan may be helpful for further evaluation. Cardiomegaly with interstitial pulmonary edema and small bilateral pleural effusions suggesting CHF. D/ / 11/09/2016 15:20:07 Micah Fam MD / jared Interpreting Provider: Micah Fam MD - VTE Documentation of Mechanical Device: Intermittent pneumatic compression device Consult Discharge Plan - Plan Referrals: Karri Morales MD [Primary Care Provider] - 1 week
[2016-11-10] MEDS: Bumetanide 1 MG/4 ML VIAL IVP SCH ×2 (09:45→17:08)
[2016-11-10] MEDS: ALLOPURINOL PO SCH (09:46)
[2016-11-10] MEDS: Silver Sulfadiazine 50 GM TUBE TP SCH (09:48)
[2016-11-10] MEDS: Budesonide/Formoterol 160/4.5 MDI IH SCH ×3 (10:40→21:53)
[2016-11-10] MEDS: Tiotropium 18 MCG inhalation IH SCH ×2 (10:40→10:47)
[2016-11-10] MEDS ORDERED: 0.9 % Sodium Chloride 250 ML ONE (12:21)
[2016-11-10] MEDS: Vancomycin 1,250 MG in D5% in Water 250 ML IVPB SCH (20:15)
[2016-11-10] MEDS: Albuterol 2.5 MG/3 ML NEBULIZER IH PRN (21:54)
[2016-11-11] MEDS: Albuterol 2.5 MG/3 ML NEBULIZER IH PRN ×2 (04:47→22:54)
[2016-11-11 07:40] LABS: Hematocrit 23.9 % (37.5-50.1); Lymphocytes # 0.3 K/mcL (0.6-4.6); Mean Corpuscular HGB Conc 33.1 g/dL (31.6-35.5); Mean Corpuscular Volume 90.9 fL (83.0-100.0); Mean Platelet Volume 10.7 fL (9.4-12.4); Red Blood Count 2.63 M/mcL (4.19-5.50); Red Cell Distribution Width 18.9 % (11.5-14.5)
[2016-11-11 08:06] LABS: Platelet Count 26 K/mcL (140-400)
[2016-11-11 08:07] LABS: Hemoglobin 7.9 g/dL (12.9-16.9)
[2016-11-11] MEDS: Isosorbide MONOnitrate (24 HR) 60 MG TAB.ER.24H PO SCH (08:22)
[2016-11-11] MEDS: ALLOPURINOL PO SCH (08:22)
[2016-11-11] MEDS: Bumetanide 1 MG/4 ML VIAL IVP SCH ×2 (08:22→16:46)
[2016-11-11] MEDS: *HR* Digoxin 0.25 MG TABLET PO SCH (08:23)
[2016-11-11] MEDS: Magnesium Oxide 400 MG TABLET PO SCH ×2 (08:23→20:11)
[2016-11-11] MEDS: Diltiazem CD (24hr) 180 MG CAPSULE PO SCH (08:24)
[2016-11-11] MEDS: Nystatin SUSP 5 ML UD.LIQ PO SCH ×4 (08:24→20:11)
[2016-11-11] MEDS: Silver Sulfadiazine 50 GM TUBE TP SCH (08:24)
[2016-11-11 08:36] LABS: BUN/Creatinine Ratio 63 (6-26); Blood Urea Nitrogen 75 mg/dL (8-26); Calcium 7.8 mg/dL (8.6-10.8); Carbon Dioxide 22 mEq/L (19-29); Chloride 107 mEq/L (98-109); Glucose 60 mg/dL (70-99); Magnesium 1.6 mg/dL (1.6-2.6); Osmolality,Calculated 312 (280-300); Potassium 3.7 mEq/L (3.5-4.5); Sodium 141 mEq/L (136-145); eGFR For African Americans > 60 (> 60); eGFR For Non-African Americans > 60 (> 60)
[2016-11-11] MEDS: Tiotropium 18 MCG inhalation IH SCH (10:03)
[2016-11-11] MEDS: Budesonide/Formoterol 160/4.5 MDI IH SCH ×2 (10:03→22:53)
[2016-11-11 10:30] LABS: Anisocytosis 1+ (Not Present); Basophils # 0.1 K/mcL (0.0-0.2); Monocytes # 0.2 K/mcL (0.0-1.3); Neutrophils # 1.9 K/mcL (1.6-8.9); Ovalocytes 1+ (Not Present); Platelet Estimate Marked Decrease (Normal)
--- NOTE | 2016-11-11 11:50 | Internal Med Progress Note ---
Date of Encounter: 11/11/16 Time of Encounter: 11:35 - Assessment and plan (1) CHF (congestive heart failure) Current Visit: Yes Status: Acute Assessment and plan: November 05. Continue Bumex, Lopressor, isosorbide, and Lanoxin. Will add Cozaar since blood pressure is elevated also. November 06. We will hold Cozaar today since blood pressure has decreased and is now borderline low. Continue Bumex, Lopressor, isosorbide, and Lanoxin. Check labs in a.m. November 07. Will increase Lanoxin and isosorbide. Continue Lopressor and Bumex at present doses. November 09. Continue present dose Lanoxin, Imdur, Bumex, Cozaar and Lopressor. Bn peptide is not significantly changed. November 10. We will give Bumex IV instead of by mouth. Continue other medications as at present. November 11. Continue present regimen and add low-dose spironolactone. Recheck BNP peptide in a.m. Qualifiers: Congestive heart failure type: systolic Congestive heart failure chronicity : chronic Qualified Code(s): I50.22 - Chronic systolic (congestive) heart failure (2) Hyperuricemia Current Visit: Yes Status: Acute Assessment and plan: November 05. Continue allopurinol November 09. We will recheck uric acid level in a.m. November 10. Uric acid level has improved to 8.6. We will increase allopurinol to 400 mg daily. (3) COPD with acute exacerbation Current Visit: No Status: Acute Assessment and plan: November 05. Continue Symbicort, Spiriva, and prn albuterol nebs (4) CKD (chronic kidney disease), stage III Current Visit: No Status: Chronic Assessment and plan: November 05. Continue to monitor renal indices. November 07. Creatinine has decreased to 1.13 with estimated GFR greater than 60. Continue present regimen. November 09. Creatinine has decreased to 1.09. Continue present management (5) Anemia Current Visit: No Status: Acute Assessment and plan: November 05. Anemia testing showed iron 38, transferrin saturation 20%, ferritin 655, B12 1963, and folate 12.2. We will discontinue supplemental B12. November 07. Hemoglobin continues to decrease. We will discontinue Plavix. November 09. He has pancytopenia with significant bandemia. He had upper GI bleed with esophagitis on EGD 11/01/2016 during his recent [facility] stay. Will guaiac stool. November 10. Pancytopenia persists. Bandemia has resolved with segs 80.4%. We will give 2 units packed red blood cells today and recheck labs in a.m. Stool was Hemoccult positive. November 11. Hemoglobin has increased to 7.9 after transfusions. Continue to monitor CBC. Qualifiers: Anemia type: unspecified type Qualified Code(s): D64.9 - Anemia, unspecified (6) Atrial fibrillation Current Visit: Yes Status: Chronic Assessment and plan: November 05. Aspirin was discontinued because of anemia and recent upper GI bleed at [facility]. We will continue Plavix for now with Lopressor for rate control November 06. Continue Lopressor for rate control. Recheck labs in a.m. November 09. Continue Lopressor. Remain off OAC and antiplatelet agents because of worsening anemia. November 11. Continue Lopressor and Cardizem Qualifiers: Atrial fibrillation type: chronic Qualified Code(s): I48.2 - Chronic atrial fibrillation (7) Hypomagnesemia Current Visit: Yes Status: Acute Assessment and plan: November 07. Magnesium level low at 1.4. Will start magnesium oxide November 09. Magnesium level still low at 1.2. We will give dose of IV magnesium sulfate and continue oral magnesium oxide.. November 10. Magnesium level minimally changed to 1.3. We will give 1 g magnesium sulfate IV and recheck labs in a.m. Continue oral magnesium oxide. November 11. Magnesium level improved to 1.6. Continue to monitor. - Subjective Interval history: November 05. He has no new complaints and states he feels better overall. November 06. He states his dyspnea has improved. He had a brief episode of chest pain earlier today. November 07. He has no new complaints and feels better. November 09. He has no new complaints. November 10. He has no new complaints. He denies pain but states he has slight dyspnea. November 11. He has no new complaints. Kim catheter was inserted with 800 mL urine returned yesterday. - Constitutional Vitals: Temp Pulse Resp BP Pulse Ox 99.6 F 84 20 103/49 93 11/11/16 07:30 11/11/16 07:30 11/11/16 10:03 11/11/16 07:30 11/11/16 10:03 Exam: He is resting more comfortably in bed. He is less dyspneic and able to speak with less difficulty than yesterday. His bilateral leg edema is slightly decreased. Right arm edema and erythema is unchanged. Left arm appears more swollen. I reviewed his medications and lab results. Internal Medicine: Result - Labs CBC & Chem 7: 11/11/16 07:13 11/11/16 07:13 Labs: Short CBC 11/11/16 Range/Units 07:13 WBC 2.5 L (4.3-11.1) K/mcL Hgb 7.9 L D (12.9-16.9) g/dL Hct 23.9 L (37.5-50.1) % Plt Count 26 L* (140-400) K/mcL Neutrophils # 1.9 (1.6-8.9) K/mcL BMP 11/11/16 07:13 Sodium 141 Potassium 3.7 Chloride 107 Carbon Dioxide 22 BUN 75 H Creatinine 1.19 Glucose 60 L Calcium 7.8 L - VTE Documentation of Mechanical Device: Intermittent pneumatic compression device Consult Discharge Plan - Plan Referrals: Karri Morales MD [Primary Care Provider] - 1 week
[2016-11-11] MEDS: Spironolactone 25 MG TABLET PO SCH (12:34)
[2016-11-11] MEDS: Doxycycline 100 MG in 0.9 % Sodium Chloride Mini Bag 100 ML IVPB SCH ×2 (12:34→18:43)
[2016-11-11 15:47] LABS: Platelet Count 28 K/mcL (140-400)
[2016-11-11] MEDS: Vancomycin 1,000 MG in D5% in Water 250 ML IVPB SCH (16:45)
[2016-11-12 05:59] LABS: Eosinophils % 1.6 %; Hematocrit 23.3 % (37.5-50.1); Hemoglobin 7.8 g/dL (12.9-16.9); Immature Granulocytes % 2.7 % (0-4); Lymphocytes # 0.3 K/mcL (0.6-4.6); Lymphocytes % 10.5 %; Mean Corpuscular HGB Conc 33.5 g/dL (31.6-35.5); Mean Corpuscular Hemoglobin 30.7 pg (28.0-33.3); Mean Corpuscular Volume 91.7 fL (83.0-100.0); Mean Platelet Volume 11.2 fL (9.4-12.4); Monocytes # 0.1 K/mcL (0.0-1.3); Monocytes % 5.5 %; Red Blood Count 2.54 M/mcL (4.19-5.50); Red Cell Distribution Width 18.6 % (11.5-14.5); Segmented Neutrophils % 79.7 %
[2016-11-12] MEDS: Doxycycline 100 MG in 0.9 % Sodium Chloride Mini Bag 100 ML IVPB SCH ×2 (06:09→20:07)
[2016-11-12 06:24] LABS: BUN/Creatinine Ratio 58 (6-26); Blood Urea Nitrogen 69 mg/dL (8-26); Carbon Dioxide 24 mEq/L (19-29); Chloride 108 mEq/L (98-109); Glucose 89 mg/dL (70-99); Magnesium 1.5 mg/dL (1.6-2.6); Osmolality,Calculated 314 (280-300); Potassium 3.9 mEq/L (3.5-4.5); Sodium 142 mEq/L (136-145); eGFR For African Americans > 60 (> 60); eGFR For Non-African Americans > 60 (> 60)
[2016-11-12 06:35] LABS: Digoxin 1.8 ng/mL (0.8-2.0)
[2016-11-12 06:55] LABS: Neutrophils # 2.1 K/mcL (1.6-8.9); Platelet Count 28 K/mcL (140-400)
[2016-11-12 07:00] LABS: Anisocytosis 1+ (Not Present); Hypochromasia Present (Not Present); Platelet Estimate Marked Decrease (Normal)
[2016-11-12] MEDS: Nystatin SUSP 5 ML UD.LIQ PO SCH ×4 (08:46→20:12)
[2016-11-12] MEDS: ALLOPURINOL PO SCH (08:46)
[2016-11-12] MEDS: Isosorbide MONOnitrate (24 HR) 60 MG TAB.ER.24H PO SCH (08:47)
[2016-11-12] MEDS: Diltiazem CD (24hr) 180 MG CAPSULE PO SCH (08:47)
[2016-11-12] MEDS: Spironolactone 25 MG TABLET PO SCH (08:47)
[2016-11-12] MEDS: Magnesium Oxide 400 MG TABLET PO SCH ×2 (08:48→17:42)
[2016-11-12] MEDS: *HR* Digoxin 0.25 MG TABLET PO SCH (08:48)
[2016-11-12] MEDS: Bumetanide 1 MG/4 ML VIAL IVP SCH ×2 (08:48→17:43)
[2016-11-12] MEDS: Silver Sulfadiazine 50 GM TUBE TP SCH (08:49)
[2016-11-12] MEDS: Albuterol 2.5 MG/3 ML NEBULIZER IH PRN ×3 (09:04→21:12)
[2016-11-12] MEDS: Tiotropium 18 MCG inhalation IH SCH (09:10)
[2016-11-12] MEDS: Budesonide/Formoterol 160/4.5 MDI IH SCH ×2 (09:11→21:12)
--- NOTE | 2016-11-12 16:00 | Internal Med Progress Note ---
Date of Encounter: 11/12/16 Time of Encounter: 15:50 - Assessment and plan (1) CHF (congestive heart failure) Current Visit: Yes Status: Acute Assessment and plan: November 05. Continue Bumex, Lopressor, isosorbide, and Lanoxin. Will add Cozaar since blood pressure is elevated also. November 06. We will hold Cozaar today since blood pressure has decreased and is now borderline low. Continue Bumex, Lopressor, isosorbide, and Lanoxin. Check labs in a.m. November 07. Will increase Lanoxin and isosorbide. Continue Lopressor and Bumex at present doses. November 09. Continue present dose Lanoxin, Imdur, Bumex, Cozaar and Lopressor. Bn peptide is not significantly changed. November 10. We will give Bumex IV instead of by mouth. Continue other medications as at present. November 11. Continue present regimen and add low-dose spironolactone. Recheck BNP peptide in a.m. November 12. Continue present regimen. Bn peptide was higher at 520 today Qualifiers: Congestive heart failure type: systolic Congestive heart failure chronicity : chronic Qualified Code(s): I50.22 - Chronic systolic (congestive) heart failure (2) Hyperuricemia Current Visit: Yes Status: Acute Assessment and plan: November 05. Continue allopurinol November 09. We will recheck uric acid level in a.m. November 10. Uric acid level has improved to 8.6. We will increase allopurinol to 400 mg daily. (3) COPD with acute exacerbation Current Visit: No Status: Acute Assessment and plan: November 05. Continue Symbicort, Spiriva, and prn albuterol nebs (4) CKD (chronic kidney disease), stage III Current Visit: No Status: Chronic Assessment and plan: November 05. Continue to monitor renal indices. November 07. Creatinine has decreased to 1.13 with estimated GFR greater than 60. Continue present regimen. November 09. Creatinine has decreased to 1.09. Continue present management November 12. Creatinine stable at 1.19. (5) Anemia Current Visit: No Status: Acute Assessment and plan: November 05. Anemia testing showed iron 38, transferrin saturation 20%, ferritin 655, B12 1963, and folate 12.2. We will discontinue supplemental B12. November 07. Hemoglobin continues to decrease. We will discontinue Plavix. November 09. He has pancytopenia with significant bandemia. He had upper GI bleed with esophagitis on EGD 11/01/2016 during his recent [facility] stay. Will guaiac stool. November 10. Pancytopenia persists. Bandemia has resolved with segs 80.4%. We will give 2 units packed red blood cells today and recheck labs in a.m. Stool was Hemoccult positive. November 11. Hemoglobin has increased to 7.9 after transfusions. Continue to monitor CBC. Qualifiers: Anemia type: unspecified type Qualified Code(s): D64.9 - Anemia, unspecified (6) Atrial fibrillation Current Visit: Yes Status: Chronic Assessment and plan: November 05. Aspirin was discontinued because of anemia and recent upper GI bleed at [facility]. We will continue Plavix for now with Lopressor for rate control November 06. Continue Lopressor for rate control. Recheck labs in a.m. November 09. Continue Lopressor. Remain off OAC and antiplatelet agents because of worsening anemia. November 11. Continue Lopressor and Cardizem Qualifiers: Atrial fibrillation type: chronic Qualified Code(s): I48.2 - Chronic atrial fibrillation (7) Hypomagnesemia Current Visit: Yes Status: Acute Assessment and plan: November 07. Magnesium level low at 1.4. Will start magnesium oxide November 09. Magnesium level still low at 1.2. We will give dose of IV magnesium sulfate and continue oral magnesium oxide.. November 10. Magnesium level minimally changed to 1.3. We will give 1 g magnesium sulfate IV and recheck labs in a.m. Continue oral magnesium oxide. November 11. Magnesium level improved to 1.6. Continue to monitor. November 12. Magnesium level is decreased to 1.5. We will increase magnesium oxide to 400 mg every 8 hours. - Subjective Interval history: November 05. He has no new complaints and states he feels better overall. November 06. He states his dyspnea has improved. He had a brief episode of chest pain earlier today. November 07. He has no new complaints and feels better. November 09. He has no new complaints. November 10. He has no new complaints. He denies pain but states he has slight dyspnea. November 11. He has no new complaints. Kim catheter was inserted with 800 mL urine returned yesterday. November 12. He has no new complaints and denies pain or significant dyspnea. Heart is irregularly irregular. Lungs show no wheezes or rhonchi. Extremities show decreased edema of the legs. The right arm edema and erythema is minimally changed. The edema has lessened in his left dorsal hand area. I reviewed his medications and lab results. - Constitutional Vitals: Temp Pulse Resp BP Pulse Ox 98.8 F 100 22 154/99 88 11/12/16 07:09 11/12/16 07:09 11/12/16 15:43 11/12/16 07:09 11/12/16 15:43 Internal Medicine: Result - Labs CBC & Chem 7: 11/12/16 05:00 11/12/16 05:00 Labs: Short CBC 11/12/16 Range/Units 05:00 WBC 2.6 L (4.3-11.1) K/mcL Hgb 7.8 L (12.9-16.9) g/dL Hct 23.3 L (37.5-50.1) % Plt Count 28 L* (140-400) K/mcL Neutrophils # 2.1 (1.6-8.9) K/mcL BMP 11/12/16 05:00 Sodium 142 Potassium 3.9 Chloride 108 Carbon Dioxide 24 BUN 69 H Creatinine 1.19 Glucose 89 Calcium 8.0 L - Impressions Impressions Chest CT 11/09/16 12:44 IMPRESSION: Diffuse soft tissue edema of the right upper extremity from the level of the mid upper arm to the hand suggesting cellulitis. No evidence of deep soft tissue infection. No discrete drainable fluid collection to suggest an abscess within the limits of this exam. No evidence of joint effusions. Incidentally noted medial subluxation of the long head biceps tendon from which can be seen with subscapularis tear. Exam is not tailored for the evaluation of the shoulder. Subtle sclerotic areas in the right anterolateral 4th, 5th and 6th ribs. Cortical irregularity and sclerosis of the right lateral 7th rib. Given the contiguous nature of these findings in adjacent ribs findings suggest healing subacute fractures. Differential would include metastatic osseous lesions given the appearance of the 7th rib. Bone scan may be helpful for further evaluation. Cardiomegaly with interstitial pulmonary edema and small bilateral pleural effusions suggesting CHF. D/ / 11/09/2016 15:20:07 Micah Fam MD / jared Interpreting Provider: Micah Fam MD Upper Extremity CT 11/09/16 12:44 IMPRESSION: Diffuse soft tissue edema of the right upper extremity from the level of the mid upper arm to the hand suggesting cellulitis. No evidence of deep soft tissue infection. No discrete drainable fluid collection to suggest an abscess within the limits of this exam. No evidence of joint effusions. Incidentally noted medial subluxation of the long head biceps tendon from which can be seen with subscapularis tear. Exam is not tailored for the evaluation of the shoulder. Subtle sclerotic areas in the right anterolateral 4th, 5th and 6th ribs. Cortical irregularity and sclerosis of the right lateral 7th rib. Given the contiguous nature of these findings in adjacent ribs findings suggest healing subacute fractures. Differential would include metastatic osseous lesions given the appearance of the 7th rib. Bone scan may be helpful for further evaluation. Cardiomegaly with interstitial pulmonary edema and small bilateral pleural effusions suggesting CHF. D/ / 11/09/2016 15:20:07 Micah Fam MD / jared Interpreting Provider: Micah Fam MD - VTE Documentation of Mechanical Device: Intermittent pneumatic compression device Consult Discharge Plan - Plan Referrals: Karri Morales MD [Primary Care Provider] - 1 week
[2016-11-12] MEDS: Vancomycin 1,000 MG in D5% in Water 250 ML IVPB SCH (17:43)
[2016-11-13] MEDS: Magnesium Oxide 400 MG TABLET PO SCH ×4 (03:31→22:59)
[2016-11-13] MEDS: Doxycycline 100 MG in 0.9 % Sodium Chloride Mini Bag 100 ML IVPB SCH ×2 (06:18→20:06)
[2016-11-13] MEDS: Albuterol 2.5 MG/3 ML NEBULIZER IH PRN ×3 (08:12→21:50)
[2016-11-13] MEDS: Budesonide/Formoterol 160/4.5 MDI IH SCH ×2 (08:15→21:50)
[2016-11-13] MEDS: Tiotropium 18 MCG inhalation IH SCH (08:17)
[2016-11-13] MEDS: ALLOPURINOL PO SCH (08:29)
[2016-11-13] MEDS: *HR* Digoxin 0.25 MG TABLET PO SCH (08:30)
[2016-11-13] MEDS: Spironolactone 25 MG TABLET PO SCH (08:30)
[2016-11-13] MEDS: Isosorbide MONOnitrate (24 HR) 60 MG TAB.ER.24H PO SCH (08:31)
[2016-11-13] MEDS: Diltiazem CD (24hr) 180 MG CAPSULE PO SCH (08:32)
[2016-11-13] MEDS: Nystatin SUSP 5 ML UD.LIQ PO SCH ×4 (08:33→22:59)
[2016-11-13] MEDS: Bumetanide 1 MG/4 ML VIAL IVP SCH ×2 (08:52→20:01)
[2016-11-13] MEDS: Silver Sulfadiazine 50 GM TUBE TP SCH (13:41)
[2016-11-13] MEDS: Vancomycin 1,000 MG in D5% in Water 250 ML IVPB SCH (17:04)
[2016-11-14 05:39] LABS: Alanine Aminotransferase 61 Units/L (0-55); Albumin/Globulin Ratio 0.4 (1.1-2.2); Alkaline Phosphatase 66 Units/L (38-126); Aspartate Amino Transferase 46 Units/L (5-34); BUN/Creatinine Ratio 51 (6-26); Bilirubin,Total 0.5 mg/dL (0.2-1.2); Blood Urea Nitrogen 50 mg/dL (8-26); Calcium 8.2 mg/dL (8.6-10.8); Carbon Dioxide 27 mEq/L (19-29); Chloride 108 mEq/L (98-109); Globulin 3.1 g/dL (2.4-3.5); Glucose 69 mg/dL (70-99); Magnesium 1.1 mg/dL (1.6-2.6); Osmolality,Calculated 314 (280-300); Potassium 3.8 mEq/L (3.5-4.5); Sodium 146 mEq/L (136-145); Total Protein 4.4 g/dL (6.0-8.3); eGFR For African Americans > 60 (> 60); eGFR For Non-African Americans > 60 (> 60)
[2016-11-14] MEDS: Doxycycline 100 MG in 0.9 % Sodium Chloride Mini Bag 100 ML IVPB SCH ×2 (05:48→18:05)
[2016-11-14 05:49] LABS: Basophils % 0.3 %; Eosinophils # 0.1 K/mcL (0.0-0.6); Eosinophils % 1.7 %; Hematocrit 24.4 % (37.5-50.1); Hemoglobin 7.8 g/dL (12.9-16.9); Immature Granulocytes % 4.8 % (0-4); Lymphocytes # 0.4 K/mcL (0.6-4.6); Lymphocytes % 13.5 %; Mean Corpuscular Hemoglobin 29.7 pg (28.0-33.3); Mean Corpuscular Volume 92.8 fL (83.0-100.0); Mean Platelet Volume 11.1 fL (9.4-12.4); Monocytes # 0.3 K/mcL (0.0-1.3); Monocytes % 9.3 %; Red Blood Count 2.63 M/mcL (4.19-5.50); Red Cell Distribution Width 18.7 % (11.5-14.5); Segmented Neutrophils % 70.4 %
[2016-11-14 06:41] LABS: Albumin 1.3 g/dL (3.5-5.0)
[2016-11-14 06:43] LABS: Platelet Count 28 K/mcL (140-400)
[2016-11-14] MEDS: Diltiazem CD (24hr) 180 MG CAPSULE PO SCH (09:21)
[2016-11-14] MEDS: Magnesium Oxide 400 MG TABLET PO SCH ×2 (09:21→18:06)
[2016-11-14] MEDS: Bumetanide 1 MG/4 ML VIAL IVP SCH ×2 (09:22→18:05)
[2016-11-14] MEDS: Nystatin SUSP 5 ML UD.LIQ PO SCH ×4 (09:22→21:14)
[2016-11-14] MEDS: ALLOPURINOL PO SCH (09:22)
[2016-11-14] MEDS: Silver Sulfadiazine 50 GM TUBE TP SCH (09:23)
[2016-11-14] MEDS: Spironolactone 25 MG TABLET PO SCH (09:27)
[2016-11-14] MEDS: Isosorbide MONOnitrate (24 HR) 60 MG TAB.ER.24H PO SCH (09:27)
[2016-11-14] MEDS: *HR* Digoxin 0.25 MG TABLET PO SCH (09:33)
[2016-11-14 10:42] LABS: Anisocytosis 1+ (Not Present); Platelet Estimate Marked Decrease (Normal)
[2016-11-14] MEDS ORDERED: Magnesium Sulfate 1 GM in D5% in Water 100 ML IVPB ONE (10:44)
[2016-11-14] MEDS: Tiotropium 18 MCG inhalation IH SCH (11:03)
[2016-11-14] MEDS: Budesonide/Formoterol 160/4.5 MDI IH SCH ×2 (11:03→20:25)
--- NOTE | 2016-11-14 17:57 | Internal Med Progress Note ---
Date of Encounter: 11/14/16 Time of Encounter: 17:50 - Assessment and plan (1) CHF (congestive heart failure) Current Visit: Yes Status: Acute Assessment and plan: November 05. Continue Bumex, Lopressor, isosorbide, and Lanoxin. Will add Cozaar since blood pressure is elevated also. November 06. We will hold Cozaar today since blood pressure has decreased and is now borderline low. Continue Bumex, Lopressor, isosorbide, and Lanoxin. Check labs in a.m. November 07. Will increase Lanoxin and isosorbide. Continue Lopressor and Bumex at present doses. November 09. Continue present dose Lanoxin, Imdur, Bumex, Cozaar and Lopressor. Bn peptide is not significantly changed. November 10. We will give Bumex IV instead of by mouth. Continue other medications as at present. November 11. Continue present regimen and add low-dose spironolactone. Recheck BNP peptide in a.m. November 12. Continue present regimen. Bn peptide was higher at 520 today November 14. Appears clinically improved. Continue present regimen Qualifiers: Congestive heart failure type: systolic Congestive heart failure chronicity : chronic Qualified Code(s): I50.22 - Chronic systolic (congestive) heart failure (2) Hyperuricemia Current Visit: Yes Status: Acute Assessment and plan: November 05. Continue allopurinol November 09. We will recheck uric acid level in a.m. November 10. Uric acid level has improved to 8.6. We will increase allopurinol to 400 mg daily. (3) COPD with acute exacerbation Current Visit: No Status: Acute Assessment and plan: November 05. Continue Symbicort, Spiriva, and prn albuterol nebs (4) CKD (chronic kidney disease), stage III Current Visit: No Status: Chronic Assessment and plan: November 05. Continue to monitor renal indices. November 07. Creatinine has decreased to 1.13 with estimated GFR greater than 60. Continue present regimen. November 09. Creatinine has decreased to 1.09. Continue present management November 12. Creatinine stable at 1.19. November 14. Creatinine has improved to 0.99 with estimated GFR greater than 60 (5) Anemia Current Visit: No Status: Acute Assessment and plan: November 05. Anemia testing showed iron 38, transferrin saturation 20%, ferritin 655, B12 1963, and folate 12.2. We will discontinue supplemental B12. November 07. Hemoglobin continues to decrease. We will discontinue Plavix. November 09. He has pancytopenia with significant bandemia. He had upper GI bleed with esophagitis on EGD 11/01/2016 during his recent [facility] stay. Will guaiac stool. November 10. Pancytopenia persists. Bandemia has resolved with segs 80.4%. We will give 2 units packed red blood cells today and recheck labs in a.m. Stool was Hemoccult positive. November 11. Hemoglobin has increased to 7.9 after transfusions. Continue to monitor CBC. November 14. Hemoglobin stable at 7.8. Qualifiers: Anemia type: unspecified type Qualified Code(s): D64.9 - Anemia, unspecified (6) Atrial fibrillation Current Visit: Yes Status: Chronic Assessment and plan: November 05. Aspirin was discontinued because of anemia and recent upper GI bleed at [facility]. We will continue Plavix for now with Lopressor for rate control November 06. Continue Lopressor for rate control. Recheck labs in a.m. November 09. Continue Lopressor. Remain off OAC and antiplatelet agents because of worsening anemia. November 11. Continue Lopressor and Cardizem Qualifiers: Atrial fibrillation type: chronic Qualified Code(s): I48.2 - Chronic atrial fibrillation (7) Hypomagnesemia Current Visit: Yes Status: Acute Assessment and plan: November 07. Magnesium level low at 1.4. Will start magnesium oxide November 09. Magnesium level still low at 1.2. We will give dose of IV magnesium sulfate and continue oral magnesium oxide.. November 10. Magnesium level minimally changed to 1.3. We will give 1 g magnesium sulfate IV and recheck labs in a.m. Continue oral magnesium oxide. November 11. Magnesium level improved to 1.6. Continue to monitor. November 12. Magnesium level is decreased to 1.5. We will increase magnesium oxide to 400 mg every 8 hours. November 14. Magnesium level decreased to 1.1. He was given 1 g magnesium sulfate earlier today. - Subjective Interval history: November 05. He has no new complaints and states he feels better overall. November 06. He states his dyspnea has improved. He had a brief episode of chest pain earlier today. November 07. He has no new complaints and feels better. November 09. He has no new complaints. November 10. He has no new complaints. He denies pain but states he has slight dyspnea. November 11. He has no new complaints. Kim catheter was inserted with 800 mL urine returned yesterday. November 12. He has no new complaints and denies pain or significant dyspnea. Heart is irregularly irregular. Lungs show no wheezes or rhonchi. Extremities show decreased edema of the legs. The right arm edema and erythema is minimally changed. The edema has lessened in his left dorsal hand area. I reviewed his medications and lab results. November 14. He has no new complaints today. He fell out of bed yesterday evening while attempting to sit on the side of bed without assistance. CT scan of the head, facial bones, and cervical spine showed no fractures. - Constitutional Vitals: Temp Pulse Resp BP Pulse Ox 99.4 F 78 20 109/53 97 11/14/16 06:52 11/14/16 13:42 11/14/16 13:42 11/14/16 13:42 11/14/16 13:42 Exam: He is lying in bed and appears fairly comfortable. His lungs show a few scattered rhonchi. The erythema has decreased in his right arm. He still has edema of the right arm and also edema of the dorsum of the left hand. His leg edema continues to gradually lessen. I reviewed his medications and lab results. Internal Medicine: Result - Labs CBC & Chem 7: 11/14/16 04:45 11/14/16 04:45 Labs: Short CBC 11/14/16 Range/Units 04:45 WBC 2.9 L (4.3-11.1) K/mcL Hgb 7.8 L (12.9-16.9) g/dL Hct 24.4 L (37.5-50.1) % Plt Count 28 L* (140-400) K/mcL Neutrophils # 2.0 (1.6-8.9) K/mcL BMP 11/14/16 04:45 Sodium 146 H Potassium 3.8 Chloride 108 Carbon Dioxide 27 BUN 50 H D Creatinine 0.99 Glucose 69 L Calcium 8.2 L Liver Function 11/14/16 Range/Units 04:45 Total Bilirubin 0.5 (0.2-1.2) mg/dL AST 46 H (5-34) Units/L ALT 61 H (0-55) Units/L Alkaline Phosphatase 66 (38-126) Units/L Albumin 1.3 L (3.5-5.0) g/dL - Impressions Impressions Cervical Spine CT 11/13/16 17:28 IMPRESSION: No acute abnormality of the cervical spine. D/ / 11/13/2016 20:14:37 Waldo Hendricks MD / hannah Interpreting Provider: Waldo Hendricks MD Face CT 11/13/16 17:28 IMPRESSION: No acute traumatic injury of the facial bones. D/ / Sudhir Cifuentes MD / Sudhir Cifuentes MD Interpreting Provider: Sudhir Cifuentes MD Head CT 11/13/16 17:28 IMPRESSION: No acute intracranial abnormality. D/ / 11/13/2016 20:10:21 Waldo Hendricks MD / hannah Interpreting Provider: Waldo Hendricks MD - VTE Documentation of Mechanical Device: Intermittent pneumatic compression device Consult Discharge Plan - Plan Referrals: Karri Morales MD [Primary Care Provider] - 1 week
[2016-11-14] MEDS: Albuterol 2.5 MG/3 ML NEBULIZER IH PRN (20:24)
[2016-11-15] MEDS: Magnesium Oxide 400 MG TABLET PO SCH ×3 (01:09→18:25)
[2016-11-15] MEDS: Nystatin OINT 15 GM TUBE TP SCH ×6 (01:11→23:50)
[2016-11-15] MEDS: Ammonium Lactate 30 APPL/225 GM BOTTLE TP SCH ×3 (02:01→23:00)
[2016-11-15] MEDS: Albuterol 2.5 MG/3 ML NEBULIZER IH PRN (03:28)
[2016-11-15] MEDS: Doxycycline 100 MG in 0.9 % Sodium Chloride Mini Bag 100 ML IVPB SCH ×2 (05:15→18:25)
[2016-11-15] MEDS ORDERED: Nystatin OINT 15 GM TUBE TP SCH (09:00)
[2016-11-15] MEDS ORDERED: Ammonium Lactate 30 APPL/225 GM BOTTLE TP SCH (09:00)
[2016-11-15] MEDS: Bumetanide 1 MG/4 ML VIAL IVP SCH ×2 (09:24→18:25)
[2016-11-15] MEDS: Spironolactone 25 MG TABLET PO SCH (09:24)
[2016-11-15] MEDS: Diltiazem CD (24hr) 180 MG CAPSULE PO SCH (09:24)
[2016-11-15] MEDS: *HR* Digoxin 0.25 MG TABLET PO SCH (09:24)
[2016-11-15] MEDS: Isosorbide MONOnitrate (24 HR) 60 MG TAB.ER.24H PO SCH (09:24)
[2016-11-15] MEDS: ALLOPURINOL PO SCH (09:25)
[2016-11-15] MEDS: Nystatin SUSP 5 ML UD.LIQ PO SCH ×3 (10:03→18:26)
[2016-11-15] MEDS: Budesonide/Formoterol 160/4.5 MDI IH SCH ×2 (11:49→22:22)
[2016-11-15] MEDS: Tiotropium 18 MCG inhalation IH SCH (11:49)
[2016-11-16] MEDS: Silver Sulfadiazine 50 GM TUBE TP SCH ×2 (00:01→10:39)
[2016-11-16] MEDS: Miconazole 2% cream 118 GM TUBE TP SCH ×2 (00:05→10:39)
[2016-11-16] MEDS: Preparation H Ointment 30 GM TUBE RC SCH ×3 (00:10→23:30)
[2016-11-16] MEDS: Nystatin SUSP 5 ML UD.LIQ PO SCH ×5 (00:15→23:29)
[2016-11-16] MEDS: Magnesium Oxide 400 MG TABLET PO SCH ×4 (00:25→23:29)
[2016-11-16] MEDS: Doxycycline 100 MG in 0.9 % Sodium Chloride Mini Bag 100 ML IVPB SCH ×2 (05:06→18:03)
[2016-11-16 05:57] LABS: Basophils % 0.2 %; Eosinophils % 0.8 %; Hemoglobin 7.7 g/dL (12.9-16.9); Immature Granulocytes % 25.2 % (0-4); Lymphocytes # 0.5 K/mcL (0.6-4.6); Lymphocytes % 10.3 %; Mean Corpuscular HGB Conc 32.1 g/dL (31.6-35.5); Mean Corpuscular Hemoglobin 30.1 pg (28.0-33.3); Mean Corpuscular Volume 93.8 fL (83.0-100.0); Monocytes # 0.8 K/mcL (0.0-1.3); Monocytes % 15.1 %; Neutrophils # 2.4 K/mcL (1.6-8.9); Nucleated Red Blood Cells 0.6 /100 WBC (0); Red Blood Count 2.56 M/mcL (4.19-5.50); Red Cell Distribution Width 18.9 % (11.5-14.5); Segmented Neutrophils % 48.4 %
[2016-11-16 06:18] LABS: Alanine Aminotransferase 53 Units/L (0-55); Albumin/Globulin Ratio 0.4 (1.1-2.2); Alkaline Phosphatase 69 Units/L (38-126); Aspartate Amino Transferase 32 Units/L (5-34); BUN/Creatinine Ratio 40 (6-26); Bilirubin,Total 0.4 mg/dL (0.2-1.2); Blood Urea Nitrogen 43 mg/dL (8-26); Calcium 8.2 mg/dL (8.6-10.8); Carbon Dioxide 29 mEq/L (19-29); Chloride 103 mEq/L (98-109); Globulin 3.1 g/dL (2.4-3.5); Glucose 87 mg/dL (70-99); Magnesium 1.1 mg/dL (1.6-2.6); Osmolality,Calculated 312 (280-300); Potassium 4.1 mEq/L (3.5-4.5); Sodium 146 mEq/L (136-145); Total Protein 4.4 g/dL (6.0-8.3); Uric Acid 6.9 mg/dL (3.5-7.2); eGFR For African Americans > 60 (> 60); eGFR For Non-African Americans > 60 (> 60)
[2016-11-16 06:29] LABS: Albumin 1.3 g/dL (3.5-5.0)
[2016-11-16 06:30] LABS: Digoxin 3.2 ng/mL (0.8-2.0)
[2016-11-16 06:35] LABS: Platelet Count 67 K/mcL (140-400)
[2016-11-16 06:52] LABS: Anisocytosis 1+ (Not Present); Platelet Estimate Decreased (Normal)
[2016-11-16] MEDS: Albuterol 2.5 MG/3 ML NEBULIZER IH PRN ×2 (08:51→14:17)
[2016-11-16] MEDS: Tiotropium 18 MCG inhalation IH SCH (08:52)
[2016-11-16] MEDS: Budesonide/Formoterol 160/4.5 MDI IH SCH ×2 (08:52→22:09)
[2016-11-16] MEDS: ALLOPURINOL PO SCH (09:55)
[2016-11-16] MEDS: Bumetanide 1 MG/4 ML VIAL IVP SCH ×2 (09:55→18:03)
[2016-11-16] MEDS: Isosorbide MONOnitrate (24 HR) 60 MG TAB.ER.24H PO SCH (09:55)
[2016-11-16] MEDS: Diltiazem CD (24hr) 180 MG CAPSULE PO SCH (09:56)
[2016-11-16] MEDS: Spironolactone 25 MG TABLET PO SCH (09:56)
--- NOTE | 2016-11-16 10:27 | Internal Med Progress Note ---
Date of Encounter: 11/16/16 Time of Encounter: 10:15 - Assessment and plan (1) CHF (congestive heart failure) Current Visit: Yes Status: Acute Assessment and plan: November 05. Continue Bumex, Lopressor, isosorbide, and Lanoxin. Will add Cozaar since blood pressure is elevated also. November 06. We will hold Cozaar today since blood pressure has decreased and is now borderline low. Continue Bumex, Lopressor, isosorbide, and Lanoxin. Check labs in a.m. November 07. Will increase Lanoxin and isosorbide. Continue Lopressor and Bumex at present doses. November 09. Continue present dose Lanoxin, Imdur, Bumex, Cozaar and Lopressor. Bn peptide is not significantly changed. November 10. We will give Bumex IV instead of by mouth. Continue other medications as at present. November 11. Continue present regimen and add low-dose spironolactone. Recheck BNP peptide in a.m. November 12. Continue present regimen. Bn peptide was higher at 520 today November 14. Appears clinically improved. Continue present regimen November 16. BNP peptide has improved further to 473. We will hold Lanoxin since dig level is high. Will continue present regimen otherwise Qualifiers: Congestive heart failure type: systolic Congestive heart failure chronicity : chronic Qualified Code(s): I50.22 - Chronic systolic (congestive) heart failure (2) Hyperuricemia Current Visit: Yes Status: Acute Assessment and plan: November 05. Continue allopurinol November 09. We will recheck uric acid level in a.m. November 10. Uric acid level has improved to 8.6. We will increase allopurinol to 400 mg daily. November 16. Uric acid level has improved further to 6.9. Continue present dose allopurinol. (3) COPD with acute exacerbation Current Visit: No Status: Acute Assessment and plan: November 05. Continue Symbicort, Spiriva, and prn albuterol nebs (4) CKD (chronic kidney disease), stage III Current Visit: No Status: Chronic Assessment and plan: November 05. Continue to monitor renal indices. November 07. Creatinine has decreased to 1.13 with estimated GFR greater than 60. Continue present regimen. November 09. Creatinine has decreased to 1.09. Continue present management November 12. Creatinine stable at 1.19. November 14. Creatinine has improved to 0.99 with estimated GFR greater than 60 November 16. BUN has improved to 43. Creatinine is risen slightly to 1.08. Estimated GFR remains greater than 60. (5) Anemia Current Visit: No Status: Acute Assessment and plan: November 05. Anemia testing showed iron 38, transferrin saturation 20%, ferritin 655, B12 1963, and folate 12.2. We will discontinue supplemental B12. November 07. Hemoglobin continues to decrease. We will discontinue Plavix. November 09. He has pancytopenia with significant bandemia. He had upper GI bleed with esophagitis on EGD 11/01/2016 during his recent [facility] stay. Will guaiac stool. November 10. Pancytopenia persists. Bandemia has resolved with segs 80.4%. We will give 2 units packed red blood cells today and recheck labs in a.m. Stool was Hemoccult positive. November 11. Hemoglobin has increased to 7.9 after transfusions. Continue to monitor CBC. November 14. Hemoglobin stable at 7.8. November 16. Hemoglobin stable at 7.7. Platelet count has improved to 67 K. Qualifiers: Anemia type: unspecified type Qualified Code(s): D64.9 - Anemia, unspecified (6) Atrial fibrillation Current Visit: Yes Status: Chronic Assessment and plan: November 05. Aspirin was discontinued because of anemia and recent upper GI bleed at [facility]. We will continue Plavix for now with Lopressor for rate control November 06. Continue Lopressor for rate control. Recheck labs in a.m. November 09. Continue Lopressor. Remain off OAC and antiplatelet agents because of worsening anemia. November 11. Continue Lopressor and Cardizem Qualifiers: Atrial fibrillation type: chronic Qualified Code(s): I48.2 - Chronic atrial fibrillation (7) Hypomagnesemia Current Visit: Yes Status: Acute Assessment and plan: November 07. Magnesium level low at 1.4. Will start magnesium oxide November 09. Magnesium level still low at 1.2. We will give dose of IV magnesium sulfate and continue oral magnesium oxide.. November 10. Magnesium level minimally changed to 1.3. We will give 1 g magnesium sulfate IV and recheck labs in a.m. Continue oral magnesium oxide. November 11. Magnesium level improved to 1.6. Continue to monitor. November 12. Magnesium level is decreased to 1.5. We will increase magnesium oxide to 400 mg every 8 hours. November 14. Magnesium level decreased to 1.1. He was given 1 g magnesium sulfate earlier today. November 16. Magnesium level remains low at 1.1. We will give 2 g magnesium sulfate IV. - Subjective Interval history: November 05. He has no new complaints and states he feels better overall. November 06. He states his dyspnea has improved. He had a brief episode of chest pain earlier today. November 07. He has no new complaints and feels better. November 09. He has no new complaints. November 10. He has no new complaints. He denies pain but states he has slight dyspnea. November 11. He has no new complaints. Kim catheter was inserted with 800 mL urine returned yesterday. November 12. He has no new complaints and denies pain or significant dyspnea. Heart is irregularly irregular. Lungs show no wheezes or rhonchi. Extremities show decreased edema of the legs. The right arm edema and erythema is minimally changed. The edema has lessened in his left dorsal hand area. I reviewed his medications and lab results. November 14. He has no new complaints today. He fell out of bed yesterday evening while attempting to sit on the side of bed without assistance. CT scan of the head, facial bones, and cervical spine showed no fractures. November 16. He has no new complaints. - Constitutional Vitals: Temp Pulse Resp BP Pulse Ox 98.6 F 66 18 114/70 92 11/15/16 19:19 11/16/16 08:35 11/16/16 08:56 11/16/16 08:35 11/16/16 08:56 Exam: He is resting comfortably in bed. He is lethargic but does awaken and answer a few questions. His left eye shows a lateral sub-conjunctival hemorrhage. His lungs show a few scattered rhonchi anteriorly. Heart is irregularly irregular. His right arm shows persistent erythema and edema. The left arm shows slightly less erythema and edema than November 14. His leg edema continues to gradually improve. I reviewed his medications and lab results. Internal Medicine: Result - Labs CBC & Chem 7: 11/16/16 05:25 11/16/16 05:25 Labs: Short CBC 11/16/16 Range/Units 05:25 WBC 5.0 D (4.3-11.1) K/mcL Hgb 7.7 L (12.9-16.9) g/dL Hct 24.0 L (37.5-50.1) % Plt Count 67 L D (140-400) K/mcL Neutrophils # 2.4 (1.6-8.9) K/mcL BMP 11/16/16 05:25 Sodium 146 H Potassium 4.1 Chloride 103 Carbon Dioxide 29 BUN 43 H Creatinine 1.08 Glucose 87 Calcium 8.2 L Liver Function 11/16/16 Range/Units 05:25 Total Bilirubin 0.4 (0.2-1.2) mg/dL AST 32 (5-34) Units/L ALT 53 (0-55) Units/L Alkaline Phosphatase 69 (38-126) Units/L Albumin 1.3 L (3.5-5.0) g/dL - VTE Documentation of Mechanical Device: Intermittent pneumatic compression device Consult Discharge Plan - Plan Referrals: Karri Morales MD [Primary Care Provider] - 1 week
[2016-11-16] MEDS ORDERED: Magnesium Sulfate 2 GM in D5% in Water 100 ML IVPB ONE (10:31)
[2016-11-16] MEDS: Ammonium Lactate 30 APPL/225 GM BOTTLE TP SCH (10:39)
[2016-11-16] MEDS ORDERED: Ammonium Lactate 30 APPL/225 GM BOTTLE TP SCH (10:45)
[2016-11-16] MEDS: Saline Nasal Spray 44 ML BOTTLE NS SCH ×2 (10:46→23:29)
[2016-11-17] MEDS: Doxycycline 100 MG in 0.9 % Sodium Chloride Mini Bag 100 ML IVPB SCH (05:26)
[2016-11-17 08:26] LABS: Magnesium 1.4 mg/dL (1.6-2.6)
[2016-11-17 08:44] LABS: Digoxin 2.9 ng/mL (0.8-2.0)
[2016-11-17] MEDS: Tiotropium 18 MCG inhalation IH SCH (08:53)
[2016-11-17] MEDS: Albuterol 2.5 MG/3 ML NEBULIZER IH PRN (08:53)
[2016-11-17] MEDS: Budesonide/Formoterol 160/4.5 MDI IH SCH (08:54)
[2016-11-17] MEDS: Bumetanide 1 MG/4 ML VIAL IVP SCH ×2 (09:12→12:26)
[2016-11-17] MEDS: Magnesium Oxide 400 MG TABLET PO SCH (09:12)
[2016-11-17] MEDS: Isosorbide MONOnitrate (24 HR) 60 MG TAB.ER.24H PO SCH (09:12)
[2016-11-17] MEDS: ALLOPURINOL PO SCH (09:12)
[2016-11-17] MEDS: Spironolactone 25 MG TABLET PO SCH (09:13)
[2016-11-17] MEDS: *HR* Digoxin 0.25 MG TABLET PO SCH (09:13)
[2016-11-17] MEDS: Diltiazem CD (24hr) 180 MG CAPSULE PO SCH (09:13)
[2016-11-17] MEDS: Preparation H Ointment 30 GM TUBE RC SCH (09:14)
[2016-11-17] MEDS: Saline Nasal Spray 44 ML BOTTLE NS SCH (09:14)
[2016-11-17] MEDS: Miconazole 2% cream 118 GM TUBE TP SCH (09:14)
[2016-11-17] MEDS: Silver Sulfadiazine 50 GM TUBE TP SCH (09:15)
[2016-11-17] MEDS: Nystatin SUSP 5 ML UD.LIQ PO SCH ×2 (09:16→12:35)
[2016-11-17] MEDS ORDERED: Vancomycin 1,000 MG in D5% in Water 250 ML IVPB SCH (10:00)
[2016-11-17 11:16] VITALS: BP 131/55
--- NOTE | 2016-11-17 15:05 | Discharge Summary ---
Date of Encounter: 11/17/16 Time of Encounter: 14:55 - Discharge Diagnosis (1) CHF (congestive heart failure) Priority: Primary Status: Acute Qualifiers: Congestive heart failure type: systolic Congestive heart failure chronicity : chronic Qualified Code(s): I50.22 - Chronic systolic (congestive) heart failure (2) Hyperuricemia Priority: Secondary Status: Acute (3) COPD with acute exacerbation Priority: Secondary Status: Acute (4) CKD (chronic kidney disease), stage III Priority: Secondary Status: Chronic (5) Anemia Priority: Secondary Status: Chronic Qualifiers: Anemia type: unspecified type Qualified Code(s): D64.9 - Anemia, unspecified (6) Atrial fibrillation Priority: Secondary Status: Chronic Qualifiers: Atrial fibrillation type: chronic Qualified Code(s): I48.2 - Chronic atrial fibrillation (7) Hypomagnesemia Priority: Secondary Status: Acute - Discharge Medications Prescriptions: LORazepam Oral Conc [Ativan Oral Conc] 2 mg PO Q2H PRN #120 mls PRN Reason: Agitation Morphine Oral CONC [Roxanol] 10 mg PO Q1H PRN #120 oral.syg PRN Reason: Pain Home Medications: Albuterol Sulfate [Proair Respiclick] 2 puff IH Q4H PRN 08/29/15 [History] Alendronate Sodium [Fosamax] 35 mg PO QWEEK 08/29/15 [History] Aspirin [Adult Low Dose Aspirin EC] 81 mg PO DAILY 08/29/15 [History] Atorvastatin [Lipitor] 40 mg PO HS 08/29/15 [History] Bumetanide [Bumex] 1 mg PO BID 08/29/15 [History] Cinnamon Bark [Cinnamon] 1,000 mg PO DAILY 08/29/15 [History] Clopidogrel [Plavix] 75 mg PO DAILY 08/29/15 [History] Fluticasone/Salmeterol [Advair 500-50 Diskus] 1 each IH BID 08/29/15 [History] Garlic 1,000 mg PO BID 08/29/15 [History] Ipratropium [ATROVENT Inhaler] 2 puff IH Q6HR PRN 08/29/15 [History] Loratadine [Claritin] 10 mg PO DAILY 08/29/15 [History] Metoprolol [Lopressor] 50 mg PO BID 08/29/15 [History] Omeprazole [PriLOSEC] 20 mg PO DAILY 08/29/15 [History] Roflumilast [Daliresp] 500 mcg PO DAILY 08/29/15 [History] [place] Oil/[place]-3 Fatty Acids [Fish Oil 500 mg Softgel] 1 each PO BID 08/29/15 [History] Vitamin B Complex [B Complex] 1 each PO DAILY 08/29/15 [History] Vitamin E (Dl,Tocopheryl Acet) [Vitamin E] 400 unit PO DAILY 08/29/15 [History] Levocetirizine Dihydrochloride [Xyzal] 5 mg PO DAILY 10/14/16 [History] PredniSONE 5 mg PO DAILY 10/14/16 [History] Diazepam [Valium] 2 mg PO HS #7 tablet 11/03/16 [Rx] Diltiazem CD (24hr) [Cardizem CD] 180 mg PO BID #60 cap.er.24h 11/03/16 [Rx] LORazepam Oral Conc [Ativan Oral Conc] 2 mg PO Q2H PRN #120 mls 11/17/16 [Rx] Morphine Oral CONC [Roxanol] 10 mg PO Q1H PRN #120 oral.syg 11/17/16 [Rx] Allergies/Adverse Reactions: Allergies diazoxide Adverse Reaction (Verified 03/10/15 11:39) Rash furosemide [From Lasix] Adverse Reaction (Verified 03/10/15 11:39) Rash montelukast Adverse Reaction (Verified 03/10/15 11:39) See Comments Pneumococcal Vaccine Adverse Reaction (Verified 03/10/15 11:39) Rash Procedures/tests Complete & Pending: Procedures Performed prior 72 hours Category Date Time Status Venous Doppler [EV venous imaging UE RT] Routine Y 11/16/16 10:32 Completed Date of admission: 11/03/16 18:52 Primary care physician: Karri Morales MD Consults: 11/03/16 21:59 Consult to Occupational Therapy [CONS] Routine Comment: Assess, develop, and implement plan of care. Consult to Physical Therapy [CONS] Routine Comment: Assess, develop, and implement plan of care. Consult to Poultry Trimmer [CONS] Routine Reason for SW Consult: New swing bed admission. 11/03/16 22:46 Consult to Pastoral Services [CONS] Routine Comment: Consult to Poultry Trimmer [CONS] Routine Reason for SW Consult: d/c plans - Patient Status Disposition: Hospice - Medical Facility Functional capacity at discharge: bed bound - Discharge Instructions - Diet and Activity Activity: wear oxygen at all times Diet: advance to your usual diet Hospital course: Mr. Lucia is a 71 year old male who was hospitalized at [facility] October 14-November 03 after presenting with dyspnea. He had a bronchoscopy done in [facility] emergency room and was intubated and on the ventilator overnight. He was able to be weaned from the ventilator and was treated for multiple medical problems over the 3 week stay. He improved but it was felt would benefit from swing bed admission and ongoing therapy prior to returning to independent living. Initial orders were written by the discharging physicians at [facility]. I saw him on November 04 and performed the swing bed history and physical. He was started on Cozaar, isosorbide and Lanoxin. Continued Lopressor and the Bumex dose was increased. He had lessening of the edema of his legs. His right arm remained erythematous and warm. He was treated for cellulitis with IV vancomycin and doxycycline with little change in his right arm. His left arm also remained edematous. He was started on allopurinol because of markedly elevated uric acid level of 14.4 on 10/24/2016. Uric acid level improved to 8.6 on recheck. The dose was increased from 300 mg daily to 400 mg daily with further improvement with level dropping to 6.9 on November 16. BUN and creatinine improved to 43 and 1.08 by November 16 with estimated GFR greater than 60. He received 2 units packed red blood cells transfused on November 10 because of anemia. His thrombocytopenia improved with platelet count rising to 67,000 November 16. WBC decreased below normal but improved back to normal range of 5.0 K on November 16. He required several IV infusions of magnesium sulfate for hypomagnesemia. His level still slightly low at 1.4 on November 17. He also received ongoing oral magnesium sulfate. Patient had multiple skin ulcers requiring local wound care and dressings. These improved minimally during his swing bed stay. On November 17 the son agreed that further aggressive intervention was probably not indicated since there had been no overall improvement. The son chose to withdraw aggressive care and requested inpatient hospice services. - Time Spent with Patient Total time spent providing and/or coordinating discharge services: - Constitutional Vitals: Temp Pulse Resp BP Pulse Ox 98.6 F 73 20 131/55 95 11/17/16 11:15 11/17/16 11:35 11/17/16 11:35 11/17/16 11:35 11/17/16 11:35 - VTE Documentation of Mechanical Device: Intermittent pneumatic compression device
--- NOTE | 2016-11-18 19:33 | Venous Imaging Report ---
UE Venous Duplex Patient Name:Douglas Lucia Order Number:[id number] Procedure Date:11/16/2016 Date:5Age:71 yrs Gender:Male Location:[facility] Room #: Casing Worker:Norman Villalobos PABLO Referring MD:Karri Morales MD Reading MD:Maxim Quezada MD Primary Indications:Swelling of limb Secondary Indications: Impressions: Right upper extremity: normal superficial and deep exam. Findings Venous Duplex Results: Right: Venous imaging of the upper extremity reveals full patency and normal vessel compressibility of the right jugular, right subclavian, right axillary, right brachial, right cephalic, right basilic, right basilic upper arm, right basilic forearm, right radial and right ulnar. Doppler signals in the evaluated veins were normal. Prior Study: No prior study available for comparison. Upper Extremity Venous Duplex Side Vein Compress Spontaneous Flow Augment Right Jugular Normal Yes Phasic Yes Right Subclavian Normal Yes Phasic Yes Right Axillary Normal Yes Phasic Yes Right Brachial Normal Yes Phasic Yes Right Cephalic Normal Yes Phasic Yes Right Basilic Normal Yes Phasic Yes Right Basilic Upper Arm Normal Yes Phasic Yes Right Basilic Forearm Normal Yes Phasic Yes Right Radial Normal Yes Phasic Yes Right Ulnar Normal Yes Phasic Yes Updated by Maxim Quezada MD on 11/18/2016 7:26:39 PM electronically signed on 11/18/2016 7:26:55 PM with status of Final
== END 2016-11-17 15:41 | disposition hospice, inpatient (51) | DRG 291 ==
LOC: INPPIK 18:52
PROVIDERS: ADMIT Internal Medicine; ATTEND Internal Medicine

== ENCOUNTER 2016-11-17 15:51 | Inpatient (IN) ==
[~2016-11-17 15:51] MED LIST: Aminoglycoside Consult 1 EACH MC ONE
[2016-11-17] MEDS ORDERED: Acetaminophen 325 MG TABLET PO PRN (16:25)
[2016-11-17] MEDS: *HR* LORazepam Oral Conc 2 MG/ML PO PRN (19:39)
[2016-11-17] MEDS: Morphine Oral CONC 5 MG/0.25 ML ORAL.SYG PO PRN (23:23)
[2016-11-18] MEDS: Morphine Oral CONC 5 MG/0.25 ML ORAL.SYG PO PRN ×5 (04:00→17:42)
[2016-11-18] MEDS: *HR* LORazepam Oral Conc 2 MG/ML PO PRN ×5 (09:22→21:32)
--- NOTE | 2016-11-18 11:47 | Internal Med Progress Note ---
Date of Encounter: 11/18/16 Time of Encounter: 11:30 - Assessment and plan (1) CHF (congestive heart failure) Current Visit: No Status: Acute Assessment and plan: November 18. Continue FLYING I INSTRUCTOR with hospice services. Qualifiers: Congestive heart failure type: systolic Congestive heart failure chronicity : chronic Qualified Code(s): I50.22 - Chronic systolic (congestive) heart failure - Subjective Interval history: He was in swing bed from November 04- following an [facility] stay. He made minimal progress overall. He had multiple skin ulcers requiring local wound care and dressings. The cellulitis in his right arm did not respond to IV vancomycin and doxycycline. On November 17 his son agreed to discharge him to inpatient hospice. He does not respond meaningfully to voice or light touch now. - Constitutional Vitals: Temp Pulse Resp BP Pulse Ox 98.8 F 101 22 142/52 95 11/18/16 08:40 11/18/16 08:40 11/18/16 08:40 11/18/16 08:40 11/18/16 08:40 Exam: He is lying in bed and appears to be in no significant distress. He has secretions in his upper airways but his peripheral lung diaz are clear. The edema of his arms is unchanged. I reviewed his medications. Consult Discharge Plan - Plan Referrals: NO,PCP [Primary Care Provider] - 1 week
[2016-11-18] MEDS: Atropine Sulfate 1% 40 DROP/2 ML BOTTLE SL PRN ×3 (11:54→20:27)
[2016-11-18] MEDS ORDERED: Acetaminophen 650 MG RECTAL SUPP RC PRN ×2 (20:20→20:36)
[2016-11-18 20:26] VITALS: BP 110/53
--- NOTE | 2016-11-19 15:41 | Discharge Summary ---
Date of Encounter: 11/19/16 Time of Encounter: 15:38 - Discharge Diagnosis (1) CHF (congestive heart failure) Priority: Primary Status: Acute Qualifiers: Congestive heart failure type: systolic Congestive heart failure chronicity : chronic Qualified Code(s): I50.22 - Chronic systolic (congestive) heart failure - Discharge Medications Home Medications: Albuterol Sulfate [Proair Respiclick] 2 puff IH Q4H PRN 08/29/15 [History] Alendronate Sodium [Fosamax] 35 mg PO QWEEK 08/29/15 [History] Aspirin [Adult Low Dose Aspirin EC] 81 mg PO DAILY 08/29/15 [History] Atorvastatin [Lipitor] 40 mg PO HS 08/29/15 [History] Bumetanide [Bumex] 1 mg PO BID 08/29/15 [History] Cinnamon Bark [Cinnamon] 1,000 mg PO DAILY 08/29/15 [History] Clopidogrel [Plavix] 75 mg PO DAILY 08/29/15 [History] Fluticasone/Salmeterol [Advair 500-50 Diskus] 1 each IH BID 08/29/15 [History] Garlic 1,000 mg PO BID 08/29/15 [History] Ipratropium [ATROVENT Inhaler] 2 puff IH Q6HR PRN 08/29/15 [History] Loratadine [Claritin] 10 mg PO DAILY 08/29/15 [History] Metoprolol [Lopressor] 50 mg PO BID 08/29/15 [History] Omeprazole [PriLOSEC] 20 mg PO DAILY 08/29/15 [History] Roflumilast [Daliresp] 500 mcg PO DAILY 08/29/15 [History] [place] Oil/[place]-3 Fatty Acids [Fish Oil 500 mg Softgel] 1 each PO BID 08/29/15 [History] Vitamin B Complex [B Complex] 1 each PO DAILY 08/29/15 [History] Vitamin E (Dl,Tocopheryl Acet) [Vitamin E] 400 unit PO DAILY 08/29/15 [History] Levocetirizine Dihydrochloride [Xyzal] 5 mg PO DAILY 10/14/16 [History] PredniSONE 5 mg PO DAILY 10/14/16 [History] Diazepam [Valium] 2 mg PO HS #7 tablet 11/03/16 [Rx] Diltiazem CD (24hr) [Cardizem CD] 180 mg PO BID #60 cap.er.24h 11/03/16 [Rx] LORazepam Oral Conc [Ativan Oral Conc] 2 mg PO Q2H PRN #120 mls 11/17/16 [Rx] Morphine Oral CONC [Roxanol] 10 mg PO Q1H PRN #120 oral.syg 11/17/16 [Rx] Allergies/Adverse Reactions: Allergies diazoxide Adverse Reaction (Verified 03/10/15 11:39) Rash furosemide [From Lasix] Adverse Reaction (Verified 03/10/15 11:39) Rash montelukast Adverse Reaction (Verified 03/10/15 11:39) See Comments Pneumococcal Vaccine Adverse Reaction (Verified 03/10/15 11:39) Rash Date of admission: 11/17/16 16:19 Primary care physician: PCP NO Consults: 11/17/16 16:25 Consult to Palliative Care [CONS] Routine Comment: Consulting Provider: Palliative Care Mary 11/17/16 18:23 Consult to Nutrition [CONS] Routine Comment: Consulting Provider: NUTRITION Reason for Dietary Consult: MST Score - Patient Status Disposition: - Discharge Instructions Hospital course: Mr. Lucia is a 71 year old male who was in swing bed from November 04- following an [facility] stay. He made minimal progress overall. He had multiple skin ulcers requiring local wound care and dressings. The cellulitis in his right arm did not respond to IV vancomycin and doxycycline. On November 17 his son agreed to discharge him to inpatient hospice. In the cardiac cath lab radiology technologist hours of November 18 the patient was found to be without pulse or respirations. No resuscitative efforts were done and he was pronounced at 0108. Body was released to the home. - Time Spent with Patient Total time spent providing and/or coordinating discharge services: - Constitutional Vitals: Temp Pulse Resp BP Pulse Ox 102.0 F H 81 24 110/53 82 11/19/16 00:31 11/19/16 00:31 11/19/16 00:31 11/18/16 20:25 11/19/16 00:31
== END 2016-11-19 02:30 | disposition expired | DRG 291 ==
LOC: INPPIK 16:19
PROVIDERS: ADMIT Internal Medicine; ATTEND Internal Medicine